=== PATIENT | male | born 1980 | race Caucasian/White ===

== ENCOUNTER 2019-07-25 08:56 | Emergency (ER) | payer OTHER, SELFPAY ==
[2019-07-25] VITALS (12 sets, daily range): BP systolic 105–141; BP diastolic 72–97; PULSE 107–122; RESP 18–26; TEMP 36.5–36.8; O2SAT 88–97; BMI 36.9
--- NOTE | 2019-07-25 09:05 | DI.RAD.S_ITS ---
PROCEDURE: XR CHEST 1V INDICATIONS: Short of breath and chest pain TECHNIQUE: One view of the chest was acquired. COMPARISON: None. FINDINGS: Surgical changes and devices: None. Lungs and pleura: An incomplete inspiratory result is noted, causing a crowded appearance to the lung markings. No focal infiltrates are seen. No pneumothorax or significant pleural effusions are seen. Mediastinum: Mediastinal contours appear normal. Heart size is normal. Bones and chest wall: No suspicious bony lesions. Overlying soft tissues appear unremarkable. IMPRESSION: Limited portable chest examination, without a significant cardiopulmonary abnormality identified. Dictated by: Braden Nunn M.D. on 07/25/2019 at 8:34 Approved by: Braden Nunn M.D. on 07/25/2019 at 8:35
--- NOTE | 2019-07-25 09:10 | ED_ITS ---
HPI - Chest Pain General Chief Complaint: Chest Pain Stated Complaint: a jack in the chest shortness of breath all night Time Seen by Provider: 07/25/19 09:03 Source: patient Mode of arrival: Ambulatory Limitations: no limitations History of Present Illness HPI narrative: Patient is a 39-year-old male with no known medical history is presenting with chest discomfort and shortness of breath which started suddenly early this morning. He says he woke up to use the restroom he felt sudden onset knot in his chest and difficulty breathing. The shortness of breath and chest pain are worse with exertion. He still has it now is but is better. He was found to be tachycardic with a oxygen saturation 88%. He denies any recent travel no productive cough no fevers chills or hemoptysis. He has no known coronary artery disease MD complaint: chest pain Onset (ago): hour(s) Duration: constant Pain location: substernal Severity: moderate Quality: tightness Pain radiation: none Relieving factors: nothing Exacerbating factors: exertion Related Data Home Medications Medication Instructions Recorded Confirmed No Known Home Medications 07/25/19 07/25/19 Allergies Allergy/AdvReac Type Severity Reaction Status Date / Time No Known Drug Allergies Allergy Verified 07/25/19 09:06 Review of Systems Review of Systems ROS Unobtainable: All systems reviewed & are unremarkable except as noted in HPI and below Cardiovascular Cardiovascular: Reports as per HPI, Reports chest pain and Reports dyspnea on exertion Respiratory Respiratory: Denies cough, Denies hemoptysis, Reports dyspnea on exertion and Denies wheezing Gastrointestinal Gastrointestinal: Denies abdominal pain, Denies change in bowel habits, Denies diarrhea, Denies nausea and Denies vomiting Musculoskeletal Musculoskeletal: Denies back pain, Denies muscle weakness, Denies numbness and Denies tingling Integumentary/Breasts Skin/Breast: Denies pruritus, Denies erythema, Denies rash and Denies wounds Neurologic Neurologic: Denies numbness and Denies tingling Allergic/Immunologic Allergic/Immunologic: Denies wheezing Patient History Medical History (Updated 07/25/19 @ 12:04 by Gladis Solomon RN) Inguinal hernia (Acute) Patient denies medical problems (Acute) Social History Smoking Status: Former smoker Smoking Status: Former smoker alcohol intake frequency: 0-2 drinks per day Substance Use Type: does not use Exam Initial Vital Signs Initial Vital Signs: Vital Signs Temperature 97.7 F 07/25/19 09:06 Pulse Rate 107 H 07/25/19 09:06 Respiratory Rate 22 07/25/19 09:06 Blood Pressure 115/72 07/25/19 09:06 Pulse Oximetry 88 L 07/25/19 09:06 GENERAL: Well-appearing, well-nourished and in no acute distress. HEENT: Head atraumatic,EOMI, pupils reactive, face symmetric, no JVD CARDIOVASCULAR: Regular rate and rhythm without murmurs, rubs or gallops. RESPIRATORY: Breath sounds equal bilaterally, no wheezes rales or rhonchi. ABDOMEN: Soft, nontender. Normoactive bowel sounds all 4 quadrants. No guarding or rebound. EXTREMITIES: Normal range of motion, no clubbing or edema. Neurovascularly intact NEUROLOGICAL: Alert and oriented x4.Normal gait and speech. Cranial nerves II through XII grossly intact. SKIN: Warm, dry, no laceration, no petechiae, no rashes or lesions. Course Orders Ordered: ED Orders 07/25/19 09:05 Consult to Respiratory Therapy Evaluate & Treat XR chest 1V Stat EKG-12 Lead Stat 07/25/19 09:16 B Type Natriuretic Peptide Stat Complete Blood Count AUTO DIFF Stat Comprehensive Metabolic Panel Stat Magnesium Stat Partial Thromboplastin Time Stat Procalcitonin Stat Prothrombin Time INR Stat Troponin & CK Cardiac Panel Stat 07/25/19 09:26 CT angio chest PE protocol Stat 07/25/19 09:48 Lactate (Lactic Acid) Stat 07/25/19 10:08 Blood Culture Stat 07/25/19 10:15 PTT [Partial Thromboplastin Time] Q6H 07/25/19 16:15 PTT [Partial Thromboplastin Time] Q6H 07/25/19 22:15 PTT [Partial Thromboplastin Time] Q6H 07/26/19 04:15 PTT [Partial Thromboplastin Time] Q6H 07/26/19 05:00 Hemoglobin and Hematocrit DAILY Heparin Sodium/Dextrose (Heparin Drip) 25,000 unit in 500 mls @ 24 mls/hr IV CONT LAURIE; Protocol Last Titration: 07/25/19 13:23 Dose: 0 units/hr, 0 mls/hr Documented by: Admin: 07/25/19 10:11 Dose: 1,200 units/hr, 24 mls/hr Documented by: [place] Discontinued Medications Albuterol/Ipratropium (Duoneb) 3 ml INH NOW ONE Stop: 07/25/19 09:06 Last Admin: 07/25/19 09:24 Dose: 3 ml Documented by: [place] Heparin Sodium (Porcine) (Heparin) 7,500 unit IV NOW ONE Stop: 07/25/19 10:04 Last Admin: 07/25/19 10:10 Dose: 7,500 unit Documented by: [place] Methylprednisolone (Solu-Medrol 125 Mg Vial) 125 mg IV NOW ONE Stop: 07/25/19 09:06 Last Admin: 07/25/19 09:24 Dose: 125 mg Documented by: [place] Consultations Consultation #1: Dr. Zambrano, hospitalist recommends patient be transferred to higher level of care with extensive clot burden and elevated troponin. Also worried about renal function. Time: 11:10 Consultation #2: Dr. Joseph, hospitalist at [facility], updated patient's symptoms test results need for transfer happily accepts patient Time: 11:31 Vital Signs Vital signs: Vital Signs - 8 hr 07/25/19 09:06 07/25/19 09:31 07/25/19 09:36 Temperature 97.7 F Pulse Rate 107 H 118 H 115 H Respiratory Rate 22 20 21 Blood Pressure 115/72 Blood Pressure [Right Arm] 121/77 Pulse Oximetry 88 L 97 96 07/25/19 10:02 07/25/19 10:22 07/25/19 10:40 Temperature Pulse Rate 114 H 119 H 121 H Respiratory Rate 22 24 18 Blood Pressure Blood Pressure [Right Arm] 124/88 141/87 H Pulse Oximetry 94 93 97 07/25/19 10:51 07/25/19 11:15 07/25/19 12:00 Temperature 98.3 F Pulse Rate 122 H 115 H 112 H Respiratory Rate 20 24 26 H Blood Pressure Blood Pressure [Right Arm] 133/89 134/92 H Pulse Oximetry 96 96 96 07/25/19 12:19 Temperature Pulse Rate 110 H Respiratory Rate 18 Blood Pressure Blood Pressure [Right Arm] 105/77 Pulse Oximetry 96 MDM - Chest Pain Lab Data Attestation: I reviewed the patient's lab results. Result diagrams: 07/25/19 09:16 07/25/19 09:16 Labs: Lab Results 07/25/19 07/25/19 07/25/19 Range/Units 09:16 09:16 09:16 WBC 12.7 H (4.5-11.0) X10^3/uL RBC 5.82 (4.5-5.9) X10^6/uL Hgb 16.1 (13.5-17.5) g/dL Hct 48.1 (41-53) % MCV 82.7 (80-100) fL MCH 27.6 (26-34) PG MCHC 33.4 (30-36) % RDW 14.8 (11.6-14.8) % Plt Count 145 L (150-400) X10^3/uL Neut % (Auto) 71.7 (50-75) % Lymph % (Auto) 14.7 L (25-40) % [place] % (Auto) 13.1 (3-14) % Eos % (Auto) 0.3 L (2-4) % Baso % (Auto) 0.2 (0-2) % Neut # (Auto) 9100 H (6270-9122) /uL Lymph # (Auto) 1900 (7189-0716) /uL [place] # (Auto) 1700 H (0-900) /uL Eos # (Auto) 0 (0-450) /uL Baso # (Auto) 0 (0-100) /uL PT 13.7 H (10.1-12.7) SECONDS INR 1.2 (0.9-1.3) APTT 33 (26.4-36.2) SECONDS Sodium 138 (137-145) mmol/L Potassium 5.0 (3.4-5.1) mmol/L Chloride 99 (98-107) mmol/L Carbon Dioxide 29 (22-32) mmol/L BUN 25 H (9-20) mg/dL Creatinine 1.90 H (0.66-1.25) mg/dL Estimated GFR 39.5 L (>60) mL/min BUN/Creatinine Ratio 13.2 (6-22) Glucose 117 H (70-100) mg/dL Lactate (0.7-2.1) mmol/L Calcium 9.4 (8.4-10.2) mg/dL Magnesium 2.4 H (1.6-2.3) mg/dL Total Bilirubin 1.3 (0.2-1.3) mg/dL AST 46 (17-59) IU/L ALT 53 H (<50) IU/L Alkaline Phosphatase 96 (38-126) U/L Total Creatine Kinase 62 (55-170) U/L CK-MB (CK-2) TNP CK-MB (CK-2) Rel Index TNP Troponin I 0.714 H* (0.01-0.034) ng/mL B-Natriuretic Peptide < 100 (<100) Total Protein 9.2 H (6.3-8.2) g/dL Albumin 4.8 (3.5-5.0) g/dL Globulin 4.4 H (1.7-4.1) g/dL Albumin/Globulin Ratio 1.1 (1.0-2.8) Procalcitonin (<0.5) ng/mL 07/25/19 07/25/19 Range/Units 09:16 09:48 WBC (4.5-11.0) X10^3/uL RBC (4.5-5.9) X10^6/uL Hgb (13.5-17.5) g/dL Hct (41-53) % MCV (80-100) fL MCH (26-34) PG MCHC (30-36) % RDW (11.6-14.8) % Plt Count (150-400) X10^3/uL Neut % (Auto) (50-75) % Lymph % (Auto) (25-40) % [place] % (Auto) (3-14) % Eos % (Auto) (2-4) % Baso % (Auto) (0-2) % Neut # (Auto) (8297-7226) /uL Lymph # (Auto) (0958-2693) /uL [place] # (Auto) (0-900) /uL Eos # (Auto) (0-450) /uL Baso # (Auto) (0-100) /uL PT (10.1-12.7) SECONDS INR (0.9-1.3) APTT (26.4-36.2) SECONDS Sodium (137-145) mmol/L Potassium (3.4-5.1) mmol/L Chloride (98-107) mmol/L Carbon Dioxide (22-32) mmol/L BUN (9-20) mg/dL Creatinine (0.66-1.25) mg/dL Estimated GFR (>60) mL/min BUN/Creatinine Ratio (6-22) Glucose (70-100) mg/dL Lactate 1.4 (0.7-2.1) mmol/L Calcium (8.4-10.2) mg/dL Magnesium (1.6-2.3) mg/dL Total Bilirubin (0.2-1.3) mg/dL AST (17-59) IU/L ALT (<50) IU/L Alkaline Phosphatase (38-126) U/L Total Creatine Kinase (55-170) U/L CK-MB (CK-2) CK-MB (CK-2) Rel Index Troponin I (0.01-0.034) ng/mL B-Natriuretic Peptide (<100) Total Protein (6.3-8.2) g/dL Albumin (3.5-5.0) g/dL Globulin (1.7-4.1) g/dL Albumin/Globulin Ratio (1.0-2.8) Procalcitonin 0.13 (<0.5) ng/mL ABG Data Attestation: I personally reviewed and interpreted this ABG as follows: Imaging Data CT scan - chest: Radiologist's Impression: PROCEDURE: CT ANGIO CHEST PE PROTOCOL INDICATIONS: hypoxia TECHNIQUE: After the administration of intravenous contrast, 2 mm thick sections acquired from the pulmonary apices to the posterior costophrenic angles. 3-dimensional maximum intensity projection (MIP) coronal and sagittal reformats were then acquired through the thorax. For radiation dose reduction, the following was used: automated exposure control, adjustment of mA and/or kV according to patient size. COMPARISON: [facility], CR, XR CHEST 1V, 07/25/2019, 9:23. FINDINGS: Image quality: Excellent. Pulmonary arteries: Extensive bilateral pulmonary embolism is seen. On the left, there is thrombus seen involving the main bifurcation. Numerous thrombi are seen within the left upper and lower pulmonary arteries as well as the left segmental arteries. On the right, the main right upper lobe pulmonary artery is involved as well as the main right middle lobe pulmonary artery. Proximal segmental branches of the right lower lobe are involved, as well as numerous segmental branches elsewhere on the right. The pulmonary arteries themselves do not appear enlarged. Lungs and pleura: Lungs are clear. No pleural effusions or pneumothorax. Central and peripheral airways are patent. Mediastinum: Heart size is normal, without pericardial effusion. No mediastinal or hilar adenopathy. Thoracic aorta is normal in caliber and enhancement. Esophagus is normal in caliber, without hiatal hernia. Bones and chest wall: No suspicious bony lesions. Ribs and thoracic spine appear intact throughout. Thyroid gland demonstrates no significant CT abnormality. No axillary or supraclavicular adenopathy. Abdomen: There is partial visualization of left-sided hydronephrosis. There is a mild degree of left-sided and stranding. The visualized portions of the upper abdominal structures are otherwise unremarkable for imaging technique. IMPRESSION: Large burden of extensive bilateral pulmonary embolism. No susan findings of right heart strain can be seen. Left-sided hydronephrosis is seen, with left-sided perinephric fat stranding. Concern is raised for left-sided obstructive uropathy. Note: Case discussed by telephone with Dr. Zelaya at 10:20 AM [place] time on July 25, 2019. Dictated by: Braden Nunn M.D. on 07/25/2019 at 9:16 Chest x-ray: Radiologist's Impression: PROCEDURE: XR CHEST 1V INDICATIONS: Short of breath and chest pain TECHNIQUE: One view of the chest was acquired. COMPARISON: None. FINDINGS: Surgical changes and devices: None. Lungs and pleura: An incomplete inspiratory result is noted, causing a crowded appearance to the lung markings. No focal infiltrates are seen. No pneumothorax or significant pleural effusions are seen. Mediastinum: Mediastinal contours appear normal. Heart size is normal. Bones and chest wall: No suspicious bony lesions. Overlying soft tissues appear unremarkable. IMPRESSION: Limited portable chest examination, without a significant cardiopulmonary abnormality identified. Dictated by: Braden Nunn M.D. on 07/25/2019 at 8:34 ECG Data Attestation: I personally reviewed and interpreted this ECG as follows: Prior ECG tracings: not available for review Interpretation: Sinus rhythm tachycardic rate 116 p.r. interval 132 QRS 93 QTC 380 S wave is noted in lead 1, Q-wave and T-wave inversion in lead [address] elevation depression or T-wave inversion MDM Narrative Medical decision making narrative: Patient noted to be quite hypoxic upon arrival. It started suddenly chest x-ray is negative for pneumothorax. Patient has no risk factors for pulmonary embolism however he is tachycardic and hypoxic. CT does reveal extensive bilateral clot burden. He is immediately started on heparin. His blood pressure remained stable and oxygen remains within normal limits on his 1-2 L. Troponin is elevated likely secondary to his cardiac stress. Obvious right heart strain is noted on the CT per Radiology. Patient's creatinine is elevated at 1.9 with left hydronephrosis also noted on CT scan. Patient had out patient blood work done at the [facility] at beginning of June. Creatinine at that time was 1.1 with BUN of 23 and that was 07/02/2019. Due to extensive clot burden and elevation of troponin recommended patient be transferred to higher level of care. Patient has been graciously accepted at [facility] in [place] Critical Care Time Critical Care Time Critical Care Time: Yes Total Critical Care Time: 45 Attestation: The high probability of a clinically significant, sudden or life threatening deterioration of the [cardiovascular] system(s) required my full and direct attention, intervention and personal management. The aggregate critical care time was [45] minutes. This time is in addition to time spent performing reported procedures but includes the following: [x] Data Review and interpretation [x] Patient assessment and monitoring of vital signs [x] Documentation [x] Medication orders and management Discharge Plan Departure Patient Disposition: [facility] Clinical Impression: Pulmonary emboli Qualifiers: Pulmonary embolism type: multiple subsegmental (without acute cor pulmonale) Qualified Code(s): I26.94 - Multiple subsegmental pulmonary emboli without acute cor pulmonale Prescriptions: No Action No Known Home Medications RF: 0
[2019-07-25 09:24] LABS: Add Manual Diff / Slide Review NO; Basophils Absolute Auto 0 /uL (0-100); Basophils Percent Auto 0.2 % (0-2); Eosinophils Absolute Auto 0 /uL (0-450); Eosinophils Percent Auto 0.3 % (2-4); Hematocrit 48.1 % (41-53); Hemoglobin 16.1 g/dL (13.5-17.5); Lymphocytes Absolute Auto 1900 /uL (1100-4500); Lymphocytes Percent Auto 14.7 % (25-40); Mean Corpuscular HGB Conc 33.4 % (30-36); Mean Corpuscular Hemoglobin 27.6 PG (26-34); Mean Corpuscular Volume 82.7 fL (80-100); Monocytes Absolute Auto 1700 /uL (0-900); Monocytes Percent Auto 13.1 % (3-14); Neutrophils Absolute Auto 9100 /uL (1500-7000); Neutrophils Percent Auto 71.7 % (50-75); Platelet Count 145 X10^3/uL (150-400); Red Blood Cell Count 5.82 X10^6/uL (4.5-5.9); Red Cell Distribution Width 14.8 % (11.6-14.8); White Blood Cell Count 12.7 X10^3/uL (4.5-11.0)
[2019-07-25] MEDS: methylPREDNISolone 125 MG/2 ML VIAL IV (09:24)
[2019-07-25] MEDS: ALBUTEROL/IPRATROPIUM 3 ML AMPUL INH (09:24)
--- NOTE | 2019-07-25 09:26 | DI.CT.S_ITS ---
PROCEDURE: CT ANGIO CHEST PE PROTOCOL INDICATIONS: hypoxia TECHNIQUE: After the administration of intravenous contrast, 2 mm thick sections acquired from the pulmonary apices to the posterior costophrenic angles. 3-dimensional maximum intensity projection (MIP) coronal and sagittal reformats were then acquired through the thorax. For radiation dose reduction, the following was used: automated exposure control, adjustment of mA and/or kV according to patient size. COMPARISON: [facility], , XR CHEST 1V, 07/25/2019, 9:23. FINDINGS: Image quality: Excellent. Pulmonary arteries: Extensive bilateral pulmonary embolism is seen. On the left, there is thrombus seen involving the main bifurcation. Numerous thrombi are seen within the left upper and lower pulmonary arteries as well as the left segmental arteries. On the right, the main right upper lobe pulmonary artery is involved as well as the main right middle lobe pulmonary artery. Proximal segmental branches of the right lower lobe are involved, as well as numerous segmental branches elsewhere on the right. The pulmonary arteries themselves do not appear enlarged. Lungs and pleura: Lungs are clear. No pleural effusions or pneumothorax. Central and peripheral airways are patent. Mediastinum: Heart size is normal, without pericardial effusion. No mediastinal or hilar adenopathy. Thoracic aorta is normal in caliber and enhancement. Esophagus is normal in caliber, without hiatal hernia. Bones and chest wall: No suspicious bony lesions. Ribs and thoracic spine appear intact throughout. Thyroid gland demonstrates no significant CT abnormality. No axillary or supraclavicular adenopathy. Abdomen: There is partial visualization of left-sided hydronephrosis. There is a mild degree of left-sided and stranding. The visualized portions of the upper abdominal structures are otherwise unremarkable for imaging technique. IMPRESSION: Large burden of extensive bilateral pulmonary embolism. No susan findings of right heart strain can be seen. Left-sided hydronephrosis is seen, with left-sided perinephric fat stranding. Concern is raised for left-sided obstructive uropathy. Note: Case discussed by telephone with Dr. Zelaya at 10:20 AM [place] time on July 25, 2019. Dictated by: Braden Nunn M.D. on 07/25/2019 at 9:16 Approved by: Braden Nunn M.D. on 07/25/2019 at 9:22
[2019-07-25 09:32] LABS: INR 1.2 (0.9-1.3); Prothrombin Time 13.7 SECONDS (10.1-12.7)
[2019-07-25 09:35] LABS: PTT Partial Thromboplastin Tim 33 SECONDS (26.4-36.2)
[2019-07-25 09:37] LABS: Alanine Aminotransferase 53 IU/L (<50); Albumin 4.8 g/dL (3.5-5.0); Albumin Globulin Ratio 1.1 (1.0-2.8); Alkaline Phosphatase 96 U/L (38-126); Aspartate Aminotransferase 46 IU/L (17-59); BUN Creatinine Ratio 13.2 (6-22); Bilirubin Total 1.3 mg/dL (0.2-1.3); Blood Urea Nitrogen 25 mg/dL (9-20); Calcium 9.4 mg/dL (8.4-10.2); Carbon Dioxide 29 mmol/L (22-32); Chloride 99 mmol/L (98-107); Creatine Kinase 62 U/L (55-170); Estimated Glomerular Filt Rate 39.5 mL/min (>60); Globulin 4.4 g/dL (1.7-4.1); Glucose 117 mg/dL (70-100); HEMOLYSIS < 15 (0-50); Magnesium 2.4 mg/dL (1.6-2.3); Sodium 138 mmol/L (137-145); Total Protein 9.2 g/dL (6.3-8.2)
[2019-07-25 09:48] LABS: B Type Natriuretic Peptide < 100 (<100)
[2019-07-25 09:54] LABS: Troponin I 0.714 ng/mL (0.01-0.034)
[2019-07-25 09:59] LABS: Procalcitonin 0.13 ng/mL (<0.5)
[2019-07-25 10:10] LABS: Lactate (Lactic Acid) 1.4 mmol/L (0.7-2.1)
[2019-07-25] MEDS: HEPARIN 5,000 UNIT/ML VIAL 7500 UNIT IV (10:10)
[2019-07-25] MEDS: HEPARIN DRIP 25,000 UNIT/500 ML IV.SOLN 24 UNIT IV (10:11)
--- NOTE | 2019-08-24 13:02 | ONC.MSW ---
Description: Initial Referral Navigation T/C Activity: Left message for pt that we've received his referral, introduced myself as the navigator and provided my direct line for him to call, should he have any questions or immediate need of assistance. Shared that the schedulers will be f/u to schedule him for the next urgent appt. time.
== END 2019-07-25 13:30 | disposition short-term general hospital (02) ==
PROVIDERS: Emergency Provider Emergency Medicine
DX: I26.94 Multiple subsegmental thrombotic pulmonary emboli without acute cor pulmonale (principal); R00.0 Tachycardia, unspecified
CPT/HCPCS: 36415; 71045; 71275; 80053; 82550; 83605; 83735; 83880; 84145; 84484; 85025; 85610; 85730; 87040; 93005; 94640; 96365; 96366; 96375; 96376; 99285; 99291; 99292; J1644; J2930; Q9967

== ENCOUNTER → 2019-09-13 07:48 | Outpatient (CLI) | payer OTHER, SELFPAY ==
[2019-09-13 08:01] LABS: Add Manual Diff / Slide Review NO; Basophils Absolute Auto 0 /uL (0-100); Basophils Percent Auto 0.6 % (0-2); Eosinophils Absolute Auto 100 /uL (0-450); Eosinophils Percent Auto 1.1 % (2-4); Hematocrit 37.6 % (41-53); Hemoglobin 12.5 g/dL (13.5-17.5); Lymphocytes Absolute Auto 1600 /uL (1100-4500); Lymphocytes Percent Auto 22.9 % (25-40); Mean Corpuscular HGB Conc 33.4 % (30-36); Mean Corpuscular Hemoglobin 27.2 PG (26-34); Mean Corpuscular Volume 81.6 fL (80-100); Monocytes Absolute Auto 900 /uL (0-900); Monocytes Percent Auto 12.7 % (3-14); Neutrophils Absolute Auto 4400 /uL (1500-7000); Neutrophils Percent Auto 62.7 % (50-75); Platelet Count 221 X10^3/uL (150-400); Red Cell Distribution Width 15.4 % (11.6-14.8)
[2019-09-13 08:16] LABS: Alanine Aminotransferase 30 IU/L (<50); Albumin 4.7 g/dL (3.5-5.0); Alkaline Phosphatase 96 U/L (38-126); Aspartate Aminotransferase 39 IU/L (17-59); BUN Creatinine Ratio 15.7 (6-22); Bilirubin Total 0.7 mg/dL (0.2-1.3); Blood Urea Nitrogen 33 mg/dL (9-20); Calcium 10.1 mg/dL (8.4-10.2); Carbon Dioxide 25 mmol/L (22-32); Chloride 104 mmol/L (98-107); Estimated Glomerular Filt Rate 35.2 mL/min (>60); Globulin 4.5 g/dL (1.7-4.1); Glucose 99 mg/dL (70-100); HEMOLYSIS < 15 (0-50); Potassium 4.5 mmol/L (3.4-5.1); Sodium 139 mmol/L (137-145); Total Protein 9.2 g/dL (6.3-8.2)
== END ==
PROVIDERS: Referring Provider Internal Medicine Hematology & Oncology; Visit Provider Internal Medicine Hematology & Oncology
DX: C62.91 Malignant neoplasm of right testis, unspecified whether descended or undescended (principal)
CPT/HCPCS: 36415; 80053; 85025

== ENCOUNTER 2019-09-14 09:49 | Day surgery (SDC) | payer OTHER, SELFPAY ==
[2019-09-14] VITALS (7 sets, daily range): BP systolic 145–163; BP diastolic 92–106; PULSE 70–100; RESP 14–21; TEMP 36.6–36.7; O2SAT 96–98; BMI 33.3
--- NOTE | 2019-09-14 | DI.RAD.S_ITS ---
PROCEDURE: XR CHEST 1V INDICATIONS: PORT A CATH PLACEMENT TECHNIQUE: One view of the chest was acquired. COMPARISON: [facility], CR, XR CHEST 1V, 07/25/2019, 9:23. FINDINGS: Surgical changes and devices: A Port-A-Cath has been placed with possible kinking of the exiting catheter just beyond its insertion into the side port, and the catheter takes a cephalad course, into the lower neck. It then curves inferiorly but does not extend clearly into the superior vena cava. Rather, its tip likely is within the jugular vein.. Lungs and pleura: Lungs are clear. No pleural effusions or pneumothorax. Mediastinum: Mediastinal contours appear normal. Heart size is normal. Bones and chest wall: No suspicious bony lesions. Overlying soft tissues appear unremarkable. IMPRESSION: Possible kinking of the Port-A-Cath catheter just beyond its exit from the Port-A-Cath reservoir. Tip of the Port-A-Cath catheter is likely adnexal level at or just above the level of the confluence of the subclavian vein and the jugular vein. Dictated by: Glen Rose M.D. on 09/14/2019 at 15:50 Approved by: Glen Rose M.D. on 09/14/2019 at 15:53
[2019-09-14] MEDS: SODIUM CHLORIDE 0.9% 1,000 ML 84 ML IV ×2 (11:15→14:26)
[2019-09-14] MEDS: METOCLOPRAMIDE 10 MG/2 ML INJ IV (11:44)
[2019-09-14] MEDS: FAMOTIDINE 20 MG/50 ML PIGGYBACK 200 MG IV (11:46)
--- NOTE | 2019-09-14 11:52 | PM.HP.1 ---
History of Present Illness History of Present Illness Date Patient Seen: 09/14/19 Time Patient Seen: 11:52 Chief complaint: [id number] Narrative: Kirk is a 39-year-old male with a right testicular cancer referred for Port-A-Cath placement. He has undergone a right orchiectomyand has stage III seminoma. He is scheduled to begin chemotherapy with Etoposide and Cisplatin within the next 1 week. His medical history is significant for bilateral pulmonary embolism and acute renal dysfunction. He is feeling well today without pain fever or nausea. No history of prior intra vascular devices. Patient History Medical History Hydronephrosis, left (Acute) Hypoxia (Acute 07/25/19) Inguinal hernia (Acute) Lipoma (Acute) Multiple pulmonary emboli (Acute 07/25/19) Patient denies medical problems (Acute) Retroperitoneal lymphadenopathy (Acute) Right testicular cancer (Acute 07/2019) Weight loss, non-intentional (Acute ~07/2019) Surgical History H/O vasectomy (Acute 07/29/19) History of removal of skin mole (Acute) History of ureter stent (Acute 07/29/19) History of ureter stent (Acute 08/24/19) Hx of cystoscopy (Acute 07/29/19) S/P radical unilateral orchiectomy (Acute 07/29/19) Family & Social History Family History Mother Rheumatoid arthritis Father Diabetes mellitus Father Hypertension Social History: household members spouse Tobacco & Substance use: Smoking Status Former smoker alcohol intake current alcohol intake frequency holiday/special occasion Substance Use Type does not use Meds Home Medications and Allergies Home Medications Medication Instructions Recorded Confirmed Type acetaminophen [Tylenol] 650 mg PO Q4H PRN 09/02/19 09/14/19 History apixaban [Eliquis] 5 mg PO BID 09/02/19 09/14/19 History cyclobenzaprine 5 mg PO TID PRN 09/02/19 09/14/19 History oxycodone 5 mg PO Q6H PRN 09/02/19 09/14/19 History polyethylene glycol 3350 [Miralax] 17 g PO DAILY 09/02/19 09/14/19 History sennosides [senna] 8.6 mg PO BID 09/02/19 09/14/19 History Allergies Allergy/AdvReac Type Severity Reaction Status Date / Time No Known Drug Allergies Allergy Verified 09/14/19 10:36 Review of Systems Review of Systems Narrative: A 10 point review of systems is negative except as noted in the HPI Exam Vital Signs (past 8 hours): - 09/14/19 10:25 Temperature 97.9 F Pulse Rate 74 Respiratory Rate 16 Blood Pressure 145/94 H Pulse Oximetry 98 Oxygen Delivery Method Room Air Narrative Exam Narrative: General-no acute distress, well nourished HEENT-moist mucous membranes, no scleral icterus Neck-supple, no lymphadenopathy Chest- non labored respirations, clear to auscultation bilaterally Cardiac-regular rate no peripheral edema Abdomen-soft, nontender, non distended Extremities-warm, well perfused Neurological-alert and oriented, no focal deficits Assessment & Plan Assessment and plan (1) Seminoma of right testis, stage 3: Problem details: Kirk is a 39-year-old male with right stage III seminoma who requires a port a cath for chemotherapy. We discussed the technical aspects of the operation the expected post operative course and potential complications including bleeding infection pneumothorax. His questions have been answered and he is in agreement with this plan. Current visit: Yes Status: Acute
[2019-09-14] MEDS: CEFAZOLIN 2 GM/100 ML FROZ.PIGGY IV (13:47)
[2019-09-14] MEDS: BUPIVACAINE 0.25% (PF) VIAL 30 ML INJ (14:09)
[2019-09-14] MEDS: HEPARIN 5,000 UNIT, SODIUM CHLORIDE 0.9% 50 ML IV (14:09)
--- NOTE | 2019-09-14 14:18 | SUR.OPER ---
Supine on padded OR bed, head on pillow, bilateral arms padded and tucked at side, legs uncrossed, safety belt at thigh, tape over blanket over lower legs .
--- NOTE | 2019-09-14 15:01 | PM.OP.1 ---
Operative Date/Time/Diagnoses Date of procedure: 09/14/19 Time of procedure: 15:01 Pre-op diagnosis: Testicular cancer Post-op diagnosis: same Procedure & Clinicians Procedure: Right Port-A-Cath Same procedure as scheduled: Yes Indications: Testicular cancer Surgeon: Elie Espino Click Yes if Unassisted: Yes Anesthesia Type: General Operative Notes Findings: Tip of the catheter projects within the SVC Estimated Blood Loss (mL): 30 Procedure in detail: Patient was brought to the operating room placed supine on table. Bilateral lower extremity compressive devices were applied. General anesthesia was induced and he was intubated with an LMA. He was then prepped and draped in usual sterile fashion. Time-out was performed ensure the correct patient procedure necessary equipment within the operating room. He received 2 g of Ancef prior to incision. Under ultrasound guidance the right internal jugular vein was accessed under direct visualization. The guidewire was then threaded through the needle. Its placement was then confirmed using fluoroscopy. The dilator was then placed over the guidewire. The catheter was then inserted through the sheath. Placement was again confirmed with fluoroscopy. A subcutaneous pocket was made in the right chest wall. The tunneler device was used to move the catheter from the neck to the chest pocket. The port was attached after it was primed with heparined saline. The port was tested to ensure that it flushed easily and had good blood return. The port was then secured to the underlying fascia using interupted 0 Prolene suture. Hemostasis was achieved. The wound was irrigated with sterile saline. Topical hemostatic agent FloSeal was placed into the chest pocket. Hemostasis was confirmed. The subcutaneous tissues were reapproximated with the 3 0 Vicryl and then skin closed with 4-0 Monocryl. The skin was sealed with Dermabond. Patient tolerated procedure well. The sponge and instrument count at the end operation was correct. Patient emerged from general anesthesia was extubated and taken to the postoperative care unit in stable condition Complications: none Post-operative Condition: stable Disposition: same day surgery
[2019-09-14] MEDS: ONDANSETRON 4 MG/2 ML INJ IV (15:18)
[2019-09-14] MEDS: fentaNYL 100 MCG/2 ML INJ IV (15:18)
== END 2019-09-14 16:17 | disposition home or self-care (01) ==
PROVIDERS: Referring Provider Surgery; Visit Provider Surgery
PROC: (CPT 36561; principal; 2019-09-14 11:15)
DX: C62.91 Malignant neoplasm of right testis, unspecified whether descended or undescended (principal); Z45.2 Encounter for adjustment and management of vascular access device; M54.9 Dorsalgia, unspecified
CPT/HCPCS: 36561; 71045; 72192; 76000; 99283; C1788; J0690; J1100; J1170; J1644; J2405; J2704; J2765; J3010

== ENCOUNTER 2019-09-14 20:37 | Emergency (ER) | payer OTHER, SELFPAY ==
[2019-09-14 20:43] VITALS: BP 147/92; PULSE 87; RESP 15; TEMP 36.7; O2SAT 99; BMI 33.3
--- NOTE | 2019-09-14 22:05 | DI.CT.S_ITS ---
PROCEDURE: CT PEL WO CON INDICATIONS: hs testicular CA with L hip pain TECHNIQUE: Noncontrast 3 mm axial sections acquired through the bony pelvis, with coronal and sagittal reformatting. COMPARISON: [facility], CT, CT ANGIO CHEST PE PROTOCOL, 07/25/2019, 9:46. FINDINGS: Image quality: Excellent. Bones: No fracture or dislocation. There is an expansile cortical lesion in the proximal right femur measuring 1.5 x 2.4 x 2.8 cm. Soft tissues: There is bilateral ureter stents. There is marked retroperitoneal lymphadenopathy with partial visualization of a large maximino mass extending to the aortic bifurcation, measuring approximately 7.6 x 9.9 cm. The bladder is mildly distended. There is a tiny fat-containing umbilical hernia and a small fat-containing left inguinal hernia. IMPRESSION: 1. No fracture or dislocation. 2. An expansile cortical lesion in the proximal right femur measuring 1.5 x 2.4 x 2.8 cm. differential diagnoses include fibrous cortical defect/nonossifying fibroma and neoplasm. Recommend MRI with and without contrast for further evaluation. In this patient with testicular cancer, a whole body bone scan may be helpful. 3. Marked retroperitoneal lymphadenopathy consistent with metastasis. Retroperitoneal adenopathy is partially visualized. Recommend CT abdomen for further evaluation. 4. Bilateral ureter stents. Dictated by: Juni Vences M.D. on 09/15/2019 at 7:36 Approved by: Juni Vences M.D. on 09/15/2019 at 7:48
--- NOTE | 2019-09-14 22:05 | ED.BACK ---
HPI - Back Pain/Injury General Chief Complaint: Back Pain/Injury Stated Complaint: sharp pain above left hip Time Seen by Provider: 09/14/19 21:58 Source: patient Mode of arrival: Ambulatory Limitations: no limitations History of Present Illness HPI Narrative: Patient is a 39-year-old male. Has testicular cancer. His known intra-abdominal lymph nodes. Had a port placed today in preparation of chemotherapy however he has not started chemotherapy. His here for evaluation of left-sided hip pain. He stated that it started earlier today. He stated that he did spend quite a bit of time sitting and lying down due to his procedure earlier today. She does have Flexeril at home but ran out of it yesterday and has not taken it today. He also has pain medication at home. He took the pain medication without much improvement of his symptoms. No bowel or bladder symptoms. Related Data Home Medications Medication Instructions Recorded Confirmed Eliquis 5 mg PO BID 09/02/19 09/14/19 acetaminophen [Tylenol] 650 mg PO Q4H PRN 09/02/19 09/14/19 cyclobenzaprine 5 mg PO TID PRN 09/02/19 09/14/19 oxycodone 5 mg PO Q6H PRN 09/02/19 09/14/19 polyethylene glycol 3350 [Miralax] 17 g PO DAILY 09/02/19 09/14/19 sennosides [senna] 8.6 mg PO BID 09/02/19 09/14/19 Allergies Allergy/AdvReac Type Severity Reaction Status Date / Time No Known Drug Allergies Allergy Verified 09/14/19 20:43 Review of Systems Constitutional Constitutional: Denies fever(s) ENT Ears, Nose, Mouth, and Throat: Denies vertigo Cardiovascular Cardiovascular: Denies chest pain and Denies dyspnea Respiratory Respiratory: Denies dyspnea Genitourinary Genitourinary: Denies dysuria Musculoskeletal Comments: Left hip pain/lower back pain Integumentary/Breasts Skin/Breast: Denies lesions and Denies rash Neurologic Neurologic: Denies behavioral changes, Denies confusion and Denies vertigo Psychiatric Psychiatric: Denies behavioral changes and Denies confusion Hematologic/Lymphatic Comments: On anticoagulation Patient History Medical History Hydronephrosis, left (Acute) Hypoxia (Acute 07/25/19) Inguinal hernia (Acute) Lipoma (Acute) Multiple pulmonary emboli (Acute 07/25/19) Patient denies medical problems (Acute) Retroperitoneal lymphadenopathy (Acute) Right testicular cancer (Acute 07/2019) Weight loss, non-intentional (Acute ~07/2019) Social History household members: spouse Smoking Status: Former smoker alcohol intake: current substance use type: does not use Smoking Status: Former smoker alcohol intake frequency: holidays/special occasions only Substance Use Type: does not use Exam Initial Vital Signs Initial Vital Signs: Vital Signs Temperature 98.1 F 09/14/19 20:43 Pulse Rate 87 09/14/19 20:43 Respiratory Rate 15 09/14/19 20:43 Blood Pressure 147/92 H 09/14/19 20:43 Pulse Oximetry 99 09/14/19 20:43 Const General: cooperative and healthy appearing Resp Effort & Inspection: normal respiratory effort Auscultation: clear to auscultation bilaterally Cardio Rate: regular rate Back/Spine/Pelvis Thoracic/Lumbar Spine: paraspinal tenderness and No lumbar spinal tenderness Skin Lesions: no lesions Rashes: no rashes Neuro General: alert and awake Cognition: normal cognition Speech: speech normal Extrem General: normal to inspection Psych Appearance: grossly normal Course Orders Ordered: ED Orders 09/14/19 22:05 CT pelvis wo con Stat Discontinued Medications Cyclobenzaprine HCl (Flexeril 10 Mg Prepack) 1 bottle MISC SEEINSTR ONE Stop: 09/14/19 23:41 Last Admin: 09/14/19 23:49 Dose: 1 bottle Documented by: DESHAUN Hydromorphone HCl (Dilaudid) 1 mg IM NOW ONE Stop: 09/14/19 22:06 Last Admin: 09/14/19 22:24 Dose: 1 mg Documented by: DESHAUN Vital Signs Vital signs: Vital Signs - 8 hr 09/14/19 23:10 Temperature 98.2 F Pulse Rate 84 Respiratory Rate 20 Blood Pressure [Right Arm] 142/84 H Pulse Oximetry 95 MDM - Back Pain/Injury Imaging Data CT pelvis: Radiologist's Impression: No acute fracture dislocation left hip Indeterminate lesion in the proximal right femur Extensive retroperitoneal lymphadenopathy Additional findings as above MDM Narrative Medical decision making narrative: I do suspect the patient's symptoms are musculoskeletal. He did improve after pain medication. CT scan shows no acute pathology in the left hip. There is no signs of fracture. We did discuss the indeterminate finding of his proximal right femur. He is instructed he needed talk with his oncologist about these findings. I did provide the patient some Flexeril until he can get it refilled tomorrow. He has pain medication at home. He was given return precautions and follow-up instructions. He expressed understanding and agreement with plan. Discharge Plan Departure Patient Disposition: Home Clinical Impression: Lower back pain Qualifiers: Chronicity: acute Back pain laterality: left Sciatica presence: without sciatica Qualified Code(s): M54.5 - Low back pain Discharge Date/Time: 09/14/19 23:50 Instructions: DI for Low Back Pain Activity Restrictions/Additional Instructions: Take all of your medications as directed. Keep all of your scheduled medical appointments. Be sure to follow-up with your oncologist to discuss the CT scan that was done today. Return to the emergency department for any new or worsening symptoms Prescriptions: No Action sennosides [senna] 8.6 mg Tablet 8.6 mg PO BID RF: 0 acetaminophen [Tylenol] 325 mg Tablet 650 mg PO Q4H PRN (Reason: Pain (Scale Score 4-6)) RF: 0 polyethylene glycol 3350 [Miralax] 17 gram/dose Powder 17 g PO DAILY RF: 0 oxycodone 5 mg Tablet 5 mg PO Q6H PRN (Reason: Pain (Scale Score 4-6)) RF: 0 cyclobenzaprine 5 mg Tablet 5 mg PO TID PRN (Reason: Pain (Scale Score 4-6)) RF: 0 Eliquis 5 mg Tablet 5 mg PO BID RF: 0 Referrals: Zain Murillo [Primary Care Provider] -
[2019-09-14] MEDS: HYDROMORPHONE 1 MG INJ IM (22:24)
[2019-09-14 23:10] VITALS: BP 142/84; PULSE 84; RESP 20; TEMP 36.8; O2SAT 95
[2019-09-14] MEDS: CYCLOBENZAPRINE 10 MG PREPACK 1 BOTTLE MISC (23:49)
== END 2019-09-14 23:50 | disposition home or self-care (01) ==
PROVIDERS: Emergency Provider Emergency Medicine
DX: M54.9 Dorsalgia, unspecified (principal)
CPT/HCPCS: 72192; J1170

== ENCOUNTER → 2019-09-17 12:28 | Outpatient (CLI) | payer OTHER, SELFPAY ==
--- NOTE | 2019-09-17 12:29 | DI.CT.S_ITS ---
PROCEDURE: CT CHEST ABD PEL WO CON INDICATIONS: testicular cancer TECHNIQUE: After the administration of oral contrast, 5 mm thick sections acquired from the lung apices to the symphysis pubis. 5 mm thick coronal and sagittal reformats acquired, with additional 7 mm coronal MIP reformats through the lungs. For radiation dose reduction, the following was used: automated exposure control, adjustment of mA and/or kV according to patient size. COMPARISON: None. FINDINGS: Image quality: Somewhat reduced due to the absence of intravenous contrast during image acquisition through the chest/abdomen/pelvis. Oral contrast was administered. CHEST: Lungs and pleura: No acute pulmonary opacities. No pleural effusions or pneumothorax. Central and peripheral airways are patent are normal in caliber. Mediastinum: Heart size is normal. No pericardial effusion. No mediastinal adenopathy by CT size criteria. Thoracic aorta and central pulmonary arteries are normal in size. Esophagus is normal in caliber. No hiatal hernia. Port-A-Cath from right sided approach extends to the medial border of the right subclavian vein, and does not enter the superior vena cava. Chest wall: No axillary or supraclavicular adenopathy by size criteria. Thyroid gland is not well-seen. ABDOMEN: Solid organs: Liver is normal in size. Gallbladder appears free of calcified gallstone.. Pancreas is normal in contours. Spleen is normal in size. No adrenal nodules. Both kidneys are normal in size, without hydronephrosis or nephrolithiasis, but they aren't impinged upon by adenopathy involving the retroperitoneum. Bilateral ureteral stents are in place. The adenopathy is symmetric, involving the aortocaval space, the para-aortic space, and deviates the kidneys somewhat laterally. At the level of the mid kidneys the adenopathy measures up to 13.9 cm transverse and 6.9 cm AP. More inferiorly near the junction of the abdomen and pelvis the adenopathy continues, confluent, measuring up to 12.9 cm transverse and 8.6 cm AP. The exact boundaries of the adenopathy is difficult to establish given the absence of intravenous contrast. More inferiorly within the area of the aortic bifurcation adenopathy diminishes significantly. Adenopathy in this area is estimated at measuring approximately 6.0 cm transverse and 4.5 cm AP. The adenopathy measures up to 18.9 cm craniocaudad.. Peritoneum and bowel: Small and large bowel loops are normal in caliber and wall thickness. No free fluid or air. Nodes and vessels: No retroperitoneal or mesenteric adenopathy by size criteria. Aorta and inferior vena cava are normal in size. Miscellaneous: No ventral hernias. PELVIS: Genitourinary: Bladder wall thickness is normal. Miscellaneous: No inguinal hernias or definite adenopathy but within the pelvis oral contrast is absent and intravenous contrast also was not administered. The distal ureteral stents appear normal related to the bladder lumen.. Bones: No suspicious bony lesions. No vertebral body compression fractures. IMPRESSION: Within the chest no pulmonary metastatic disease or mediastinal/hilar adenopathy is found. Within the abdomen there is extensive retroperitoneal adenopathy with mass effect upon the course of the ureters bilaterally in the kidneys, deviating the structures laterally, but ureteral stents are present, without residual hydronephrosis. The adenopathy diminishes and appears to terminate at the upper pelvis. Ureteral stents persist in a normal course to the bladder. As noted, quality of visualization is somewhat limited due to the absence of intravenous contrast for the entire study in the absence of oral contrast having not reached the pelvis. Dictated by: Glen Rose M.D. on 09/17/2019 at 17:00 Approved by: Glen Rose M.D. on 09/17/2019 at 17:09
== END ==
PROVIDERS: Referring Provider Internal Medicine Hematology & Oncology; Visit Provider Internal Medicine Hematology & Oncology
DX: C62.91 Malignant neoplasm of right testis, unspecified whether descended or undescended (principal); R59.0 Localized enlarged lymph nodes
CPT/HCPCS: 71250; 74176

== ENCOUNTER 2019-10-02 20:45 | Emergency (ER) | payer OTHER, SELFPAY ==
[2019-10-02 20:52] VITALS: BP 135/65; PULSE 106; RESP 16; TEMP 36.8; O2SAT 99
--- NOTE | 2019-10-02 21:04 | ED_ITS ---
HPI - General Adult General Chief complaint: Fever Stated complaint: cancer patient, has a fever Time Seen by Provider: 10/02/19 20:58 Source: patient Mode of arrival: Ambulatory Limitations: no limitations History of Present Illness HPI narrative: Patient is a 39-year-old male. Has testicular cancer. Back on 09/20/2019 underwent his 1st course of chemotherapy. Dr. Bautista is his oncologist. Not currently on any prophylactic antibiotics. Past couple days has had with the patient describes as a ?low-grade fever ?he states that he is taking his temperature on a daily basis. His fevers have been in the 98-99 d egree range. Patient states that he normally runs in the 97 degree range. Today he had a 1 time temperature of 100.2?. He states that other than a slight headache he is relatively asymptomatic. He contacted the oncologist on-call who told him to come to the emergency department for evaluation. Related Data Home Medications Medication Instructions Recorded Confirmed Eliquis 5 mg PO BID 09/02/19 09/20/19 acetaminophen [Tylenol] 650 mg PO Q4H PRN 09/02/19 09/20/19 cyclobenzaprine 5 mg PO TID PRN 09/02/19 09/20/19 oxycodone 5 mg PO Q6H PRN 09/02/19 09/20/19 polyethylene glycol 3350 [Miralax] 17 g PO DAILY 09/02/19 09/20/19 sennosides [senna] 8.6 mg PO BID 09/02/19 09/20/19 Previous Rx's Medication Instructions Recorded ondansetron 8 mg PO Q6HR PRN #60 tab 09/21/19 amoxicillin-pot clavulanate 1 tab PO BID #9 tab 10/02/19 [Augmentin] ciprofloxacin HCl 500 mg PO BID #9 tab 10/02/19 Allergies Allergy/AdvReac Type Severity Reaction Status Date / Time No Known Drug Allergies Allergy Verified 10/02/19 20:56 Review of Systems Constitutional Constitutional: Reports fever(s) and Reports headache(s) Eyes Eyes: Denies change in vision ENT Ears, Nose, Mouth, and Throat: Reports headache(s) and Denies sore throat Cardiovascular Cardiovascular: Denies chest pain and Denies dyspnea Respiratory Respiratory: Denies cough and Denies dyspnea Gastrointestinal Gastrointestinal: Denies abdominal pain, Denies nausea and Denies vomiting Musculoskeletal Musculoskeletal: Denies myalgias and Denies arthralgias Integumentary/Breasts Skin/Breast: Denies lesions and Denies rash Neurologic Neurologic: Denies behavioral changes and Reports headache(s) Psychiatric Psychiatric: Denies behavioral changes Hematologic/Lymphatic Hematologic/Lymphatic: Denies easy bleeding and Denies easy bruising Allergic/Immunologic Allergic/Immunologic: Denies urticaria Patient History Medical History Hydronephrosis, left (Acute) Hypoxia (Acute 07/25/19) Inguinal hernia (Acute) Lipoma (Acute) Multiple pulmonary emboli (Acute 07/25/19) Patient denies medical problems (Acute) Retroperitoneal lymphadenopathy (Acute) Right testicular cancer (Acute 07/2019) Weight loss, non-intentional (Acute ~07/2019) Surgical History H/O vasectomy (Acute 07/29/19) History of removal of skin mole (Acute) History of ureter stent (Acute 07/29/19) History of ureter stent (Acute 08/24/19) Hx of cystoscopy (Acute 07/29/19) S/P radical unilateral orchiectomy (Acute 07/29/19) Family History Mother Rheumatoid arthritis Father Diabetes mellitus Father Hypertension Social History household members: spouse Smoking Status: Former smoker alcohol intake: current substance use type: does not use Smoking Status: Former smoker alcohol intake frequency: holidays/special occasions only Substance Use Type: does not use Exam Initial Vital Signs Initial Vital Signs: Vital Signs Temperature 98.2 F 10/02/19 20:52 Pulse Rate 106 H 10/02/19 20:52 Respiratory Rate 16 10/02/19 20:52 Blood Pressure 135/65 10/02/19 20:52 Pulse Oximetry 99 10/02/19 20:52 Const General: cooperative, healthy appearing, comfortable and well developed Limitations: mental status not altered HENMT Head: normal to inspection and normocephalic Resp Effort & Inspection: normal respiratory effort Cardio Rate: regular rate Skin Lesions: no lesions Rashes: no rashes Neuro General: alert, awake and oriented x3 Cognition: normal cognition Speech: speech normal Gait: normal gait Extrem General: normal to inspection and capillary refill normal Psych Appearance: grossly normal and well kempt Course Orders Ordered: ED Orders 10/02/19 21:04 XR chest 1V Stat 10/02/19 21:43 Basic Metabolic Panel Stat Complete Blood Count AUTO DIFF Stat Lactate (Lactic Acid) Stat Procalcitonin Stat 10/02/19 22:00 Blood Culture Stat 10/02/19 22:20 Influenza A & B (PCR) Stat 10/02/19 23:17 Urinalysis and Microscopic Stat Urine Culture Stat Discontinued Medications Amoxicillin/Clavulanate Potassium (Augmentin 875-125 Mg) 1 tab PO NOW ONE Stop: 10/02/19 23:46 Last Admin: 10/02/19 23:59 Dose: 1 tab Documented by: DESHAUN Ciprofloxacin (Cipro) 500 mg PO NOW ONE Stop: 10/02/19 23:46 Last Admin: 10/02/19 23:59 Dose: 500 mg Documented by: DESHAUN Heparin Sodium (Porcine) (Heparin Flush (Port)) 500 unit IV PRN PRN PRN Reason: Flush Last Admin: 10/02/19 23:59 Dose: 500 unit Documented by: DESHAUN Sodium Chloride (Normal Saline 0.9%) 500 mls @ 21 mls/hr IV CONT LAURIE Last Infusion: 10/02/19 23:59 Dose: 0 mls/hr Documented by: Admin: 10/02/19 22:02 Dose: 21 mls/hr Documented by: DESHAUN Lidocaine HCl (Xylocaine 1%) 1 ml SUBCUT NOW ONE Stop: 10/02/19 21:16 Last Admin: 10/02/19 22:57 Dose: Not Given Documented by: DESHAUN Vital Signs Vital signs: Vital Signs - 8 hr 10/02/19 20:52 10/02/19 22:10 10/02/19 23:25 Temperature 98.2 F 99.1 F Pulse Rate 106 H 82 Respiratory Rate 16 20 Blood Pressure 135/65 Blood Pressure [Left Arm] 135/84 125/79 Pulse Oximetry 99 100 98 10/03/19 00:05 Temperature 98.9 F Pulse Rate Respiratory Rate Blood Pressure Blood Pressure [Left Arm] Pulse Oximetry Medical Decision Making Medical Records Medical records reviewed: Yes I reviewed the patient's medical records. Lab Data Lab results reviewed: Yes I reviewed the patient's lab results. Result diagrams: 10/02/19 21:43 10/02/19 21:43 Labs: Lab Results 10/02/19 10/02/19 10/02/19 Range/Units 21:43 21:43 21:43 WBC 1.3 L* (4.5-11.0) X10^3/uL RBC 3.59 L (4.5-5.9) X10^6/uL Hgb 9.8 L (13.5-17.5) g/dL Hct 28.8 L (41-53) % MCV 80.2 (80-100) fL MCH 27.3 (26-34) PG MCHC 34.1 (30-36) % RDW 14.7 (11.6-14.8) % Plt Count 101 L (150-400) X10^3/uL Neut % (Auto) Not Reportable Lymph % (Auto) Not Reportable [place] % (Auto) Not Reportable Eos % (Auto) Not Reportable Baso % (Auto) Not Reportable Lymph # (Auto) Not Reportable [place] # (Auto) Not Reportable Baso # (Auto) Not Reportable Total Counted 100 Seg Neutrophils % 10.0 L (38-70) % Band Neutrophils % 2.0 L (3-7) % Lymphocytes % (Manual) 72.0 H (25-45) % Atypical Lymphs % 6.0 H ( - 0) % Monocytes % (Manual) 6.0 (2-11) % Basophils % (Manual) 4.0 H (0-1) % Neutrophils # (Manual) 156 L (2217-8854) /uL RBC Morphology See below Anisocytosis 1+ H Sodium 136 L (137-145) mmol/L Potassium 4.3 (3.4-5.1) mmol/L Chloride 101 (98-107) mmol/L Carbon Dioxide 28 (22-32) mmol/L BUN 25 H (9-20) mg/dL Creatinine 1.31 H (0.66-1.25) mg/dL Estimated GFR > 60.0 (>60) mL/min BUN/Creatinine Ratio 19.1 (6-22) Glucose 106 H (70-100) mg/dL Lactate (0.7-2.1) mmol/L Calcium 9.0 (8.4-10.2) mg/dL Procalcitonin < 0.05 (<0.5) ng/mL Urine Color Urine Appearance Urine pH (4.5-8.0) Ur Specific [place] (1.000-1.035) Urine Protein (Negative) Urine Glucose (UA) (Negative) g/dL Urine Ketones (NEGATIVE) Urine Occult Blood (Negative) Urine Nitrate (Negative) Urine Bilirubin (NEGATIVE) Urine Urobilinogen (0.2) E.U./dL Ur Leukocyte Esterase (NEGATIVE) Urine RBC (0-5/HPF) Urine WBC (0-5/HPF) Urine Bacteria (None) Ur Culture Indicated? Influenza A (RT-PCR) (NEGATIVE) Influenza B (RT-PCR) (NEGATIVE) 10/02/19 10/02/19 10/02/19 Range/Units 21:43 22:20 23:17 WBC (4.5-11.0) X10^3/uL RBC (4.5-5.9) X10^6/uL Hgb (13.5-17.5) g/dL Hct (41-53) % MCV (80-100) fL MCH (26-34) PG MCHC (30-36) % RDW (11.6-14.8) % Plt Count (150-400) X10^3/uL Neut % (Auto) Lymph % (Auto) [place] % (Auto) Eos % (Auto) Baso % (Auto) Lymph # (Auto) [place] # (Auto) Baso # (Auto) Total Counted Seg Neutrophils % (38-70) % Band Neutrophils % (3-7) % Lymphocytes % (Manual) (25-45) % Atypical Lymphs % ( - 0) % Monocytes % (Manual) (2-11) % Basophils % (Manual) (0-1) % Neutrophils # (Manual) (7762-0173) /uL RBC Morphology Anisocytosis Sodium (137-145) mmol/L Potassium (3.4-5.1) mmol/L Chloride (98-107) mmol/L Carbon Dioxide (22-32) mmol/L BUN (9-20) mg/dL Creatinine (0.66-1.25) mg/dL Estimated GFR (>60) mL/min BUN/Creatinine Ratio (6-22) Glucose (70-100) mg/dL Lactate 0.7 (0.7-2.1) mmol/L Calcium (8.4-10.2) mg/dL Procalcitonin (<0.5) ng/mL Urine Color Yellow Urine Appearance Sl cloudy Urine pH 6.0 (4.5-8.0) Ur Specific [place] 1.015 (1.000-1.035) Urine Protein 1+ H (Negative) Urine Glucose (UA) Negative (Negative) g/dL Urine Ketones Negative (NEGATIVE) Urine Occult Blood 3+ H (Negative) Urine Nitrate Negative (Negative) Urine Bilirubin Negative (NEGATIVE) Urine Urobilinogen 0.2 (0.2) E.U./dL Ur Leukocyte Esterase 1+ H (NEGATIVE) Urine RBC 30-100/hpf H (0-5/HPF) Urine WBC 5-10/hpf H (0-5/HPF) Urine Bacteria Moderate (10-30) H (None) Ur Culture Indicated? Culture not indicate Influenza A (RT-PCR) Flu a negative (NEGATIVE) Influenza B (RT-PCR) Flu b negative (NEGATIVE) Imaging Data Chest x-ray: Radiologist's Impression: [address] [address] XRay Report Signed Patient: Kirk Richardson [facility]#: [id number] : 1980Acct:[id number] Age/Sex: 39 / MDate of Service: 10/02/19 Loc: ED Accession Number: [id number] Procedure: XR chest 1V Ordering Provider: Josué Lou D.O. PROCEDURE: XR CHEST 1V INDICATIONS: eval for PNA TECHNIQUE: One view of the chest was acquired. COMPARISON: [facility], , XR CHEST 1V, 09/14/2019, 15:09. FINDINGS: Surgical changes and devices: Right IJ Mediport in stable position. Lungs and pleura: Low lung volumes. Lungs are clear. No pleural effusions or pneumothorax. Mediastinum: Mediastinal contours appear normal. Heart size is normal. Bones and chest wall: No suspicious bony lesions. Overlying soft tissues appear unremarkable. IMPRESSION: 1. Low lung volumes, but no evidence of acute pulmonary disease. 2. Stable, suboptimally positioned right IJ Mediport. Dictated by: Rose Noonan M.D. on 10/02/2019 at 21:31 Approved by: Rose Noonan M.D. on 10/02/2019 at 21:33 MDM Narrative Medical decision making narrative: Patient is afebrile here. He is neutropenic which is not surprising given his chemotherapy regiment in the time since his chemotherapy. He is nontoxic appearing. Normal exam. Blood cultures were obtained and are pending. Urine culture is pending. Chest x-ray shows no signs of pneumonia. Physical exam is not consistent with meningitis given his headache and neck pain. Patient already has a scheduled appointment on Friday with oncology. I did discuss the case with Dr. Loomis who was on-call for Oncology who recommended starting the patient on Augmentin and Cipro. He was given his 1st dose of his antibiotics here in the ER was discharged home with a prescription. Patient was given strict return precautions. He expressed understanding and agreement. Discharge Plan Departure Patient Disposition: Home Clinical Impression: Neutropenia Qualifiers: Neutropenia type: unspecified Qualified Code(s): D70.9 - Neutropenia, unspecified Discharge Date/Time: 10/03/19 00:09 Instructions: Neutropenic Fever Activity Restrictions/Additional Instructions: Keep your appointment that you already have scheduled for Friday at the cancer center. Take the antibiotics as directed. Return to the emergency department for any new or worsening symptoms. [facility] prescriptions [facility] Prescriptions: New amoxicillin-pot clavulanate [Augmentin] 875-125 mg tablet 1 tab PO BID Qty: 9 RF: 0 ciprofloxacin HCl 500 mg tablet 500 mg PO BID Qty: 9 RF: 0 No Action sennosides [senna] 8.6 mg Tablet 8.6 mg PO BID RF: 0 acetaminophen [Tylenol] 325 mg Tablet 650 mg PO Q4H PRN (Reason: Pain (Scale Score 4-6)) RF: 0 polyethylene glycol 3350 [Miralax] 17 gram/dose Powder 17 g PO DAILY RF: 0 oxycodone 5 mg Tablet 5 mg PO Q6H PRN (Reason: Pain (Scale Score 4-6)) RF: 0 cyclobenzaprine 5 mg Tablet 5 mg PO TID PRN (Reason: Pain (Scale Score 4-6)) RF: 0 Eliquis 5 mg Tablet 5 mg PO BID RF: 0 ondansetron 8 mg Tablet,Disintegrating 8 mg PO Q6HR PRN (Reason: Nausea) Qty: 60 RF: 0 Referrals: Zain Murillo [Primary Care Provider] -
[2019-10-02] MEDS: LIDOCAINE 1% (PF) 2 ML (21:24)
[2019-10-02] MEDS: SODIUM CHLORIDE 0.9% 500 ML 21 ML IV (22:02)
[2019-10-02 22:05] LABS: Lactate (Lactic Acid) 0.7 mmol/L (0.7-2.1)
[2019-10-02 22:09] LABS: Hematocrit 28.8 % (41-53); Hemoglobin 9.8 g/dL (13.5-17.5); Mean Corpuscular HGB Conc 34.1 % (30-36); Mean Corpuscular Hemoglobin 27.3 PG (26-34); Mean Corpuscular Volume 80.2 fL (80-100); Platelet Count 101 X10^3/uL (150-400); Red Blood Cell Count 3.59 X10^6/uL (4.5-5.9); Red Cell Distribution Width 14.7 % (11.6-14.8)
[2019-10-02 22:10] VITALS: BP 135/84; PULSE 82; RESP 20; TEMP 37.3; O2SAT 100
[2019-10-02 22:12] LABS: BUN Creatinine Ratio 19.1 (6-22); Blood Urea Nitrogen 25 mg/dL (9-20); Carbon Dioxide 28 mmol/L (22-32); Chloride 101 mmol/L (98-107); Estimated Glomerular Filt Rate > 60.0 mL/min (>60); Glucose 106 mg/dL (70-100); HEMOLYSIS < 15 (0-50); Potassium 4.3 mmol/L (3.4-5.1); Sodium 136 mmol/L (137-145)
[2019-10-02 22:23] LABS: Add Manual Diff / Slide Review YES; White Blood Cell Count 1.3 X10^3/uL (4.5-11.0)
[2019-10-02 22:28] LABS: Procalcitonin < 0.05 ng/mL (<0.5)
[2019-10-02 22:53] LABS: Total Cells Counted 100
[2019-10-02 22:54] LABS: Anisocytosis 1+; Neutrophils Absolute Manual 156 /uL (3000-5900)
[2019-10-02 22:58] LABS: Influenza A - CEPHEID Flu A NEGATIVE (NEGATIVE); Influenza B - CEPHEID Flu B NEGATIVE (NEGATIVE)
[2019-10-02 23:25] VITALS: BP 125/79; O2SAT 98
[2019-10-02 23:27] LABS: Appearance Urine UA SL CLOUDY; Bilirubin Urine UA NEGATIVE (NEGATIVE); Color Urine UA YELLOW; Glucose Urine UA NEGATIVE (Negative); Ketones Urine UA NEGATIVE (NEGATIVE); Leukocyte Esterase Urine UA 1+ (NEGATIVE); Nitrite Urine UA NEGATIVE (Negative); Occult Blood Urine UA 3+ (Negative); Protein Urine UA 1+ (Negative); Specific Gravity Urine UA 1.015 (1.000-1.035); Urobilinogen Urine UA 0.2 E.U./dL (0.2)
[2019-10-02 23:43] LABS: Bacteria Urine Moderate (10-30); RBC Urine 30-100/HPF (0-5/HPF); WBC Urine 5-10/HPF (0-5/HPF)
[2019-10-02] MEDS: CIPROFLOXACIN 500 MG TABLET PO (23:59)
[2019-10-02] MEDS: AMOXICILLIN/CLAV 875/125 MG 1 TAB PO (23:59)
[2019-10-03 00:05] VITALS: TEMP 37.2
== END 2019-10-03 00:09 | disposition home or self-care (01) ==
PROVIDERS: Emergency Provider Emergency Medicine
DX: D70.9 Neutropenia, unspecified (principal); C62.91 Malignant neoplasm of right testis, unspecified whether descended or undescended
CPT/HCPCS: 36415; 71045; 80048; 81001; 83605; 84145; 85025; 87040; 87077; 87086; 87186; 87502; 96360; 96361; 99284; 99285; J1642

== ENCOUNTER → 2019-10-25 08:46 | Outpatient (CLI) | payer OTHER, SELFPAY ==
--- NOTE | 2019-10-25 08:47 | DI.CT.S_ITS ---
PROCEDURE: CT CHEST ABD PEL WO CON INDICATIONS: Restaging testicular cancer TECHNIQUE: After the administration of oral contrast, 5 mm thick sections acquired from the lung apices to the symphysis pubis. 5 mm thick coronal and sagittal reformats acquired, with additional 7 mm coronal MIP reformats through the lungs. For radiation dose reduction, the following was used: automated exposure control, adjustment of mA and/or kV according to patient size. COMPARISON: [facility], CT, CT CHEST ABD PEL WO CON, 09/17/2019, 13:17. FINDINGS: Image quality: Excellent. CHEST: Lungs and pleura: No acute pulmonary opacities. No pleural effusions or pneumothorax. Central and peripheral airways are patent are normal in caliber. Mediastinum: Heart size is normal. No pericardial effusion. No mediastinal adenopathy by CT size criteria. Thoracic aorta and central pulmonary arteries are normal in size. Esophagus is normal in caliber. No hiatal hernia. Chest wall: No axillary or supraclavicular adenopathy by size criteria. Thyroid gland is within normal limits. ABDOMEN: Solid organs: Liver is normal in size. Gallbladder is unremarkable. Pancreas is normal in contours. Spleen is normal in size. No adrenal nodules. Bilateral kidneys are normal in size. Bilateral ureteral stents are present. No renal stone or significant hydronephrosis is seen. Mild bilateral periureteral fat stranding is seen. Previously described extensive retroperitoneal lymphadenopathy encasing bilateral ureters has significantly decreased. Peritoneum and bowel: Small and large bowel loops are normal in caliber and wall thickness. No free fluid or air. Nodes and vessels: Previously described extensive retroperitoneal lymphadenopathy has significantly improved in size now measures in aggregate 5.8 x 4.1 x 11 cm in its largest transverse, AP and craniocaudal dimensions compared to 12.9 x 8.6 x 18.9 cm in size on previous study. No gross mesenteric lymphadenopathy by size criteria. Aorta and inferior vena cava are normal in size. Miscellaneous: No ventral hernias. PELVIS: Genitourinary: Bladder wall thickness is normal. Miscellaneous: No inguinal hernias or adenopathy. Bones: No suspicious bony lesions. No vertebral body compression fractures. IMPRESSION: 1. Interval significant decrease in the extent of retroperitoneal lymphadenopathy encasing bilateral ureters seen on previous study. No new areas of lymphadenopathy is seen in chest, abdomen or pelvis. 2. Bilateral ureteral stents in place. No hydronephrosis. Mild bilateral perirenal fat stranding likely represent residual adenopathy. 3. No evidence of metastatic disease in bilateral lung cespedes. Dictated by: Miguel Angel Mclain M.D. on 10/25/2019 at 10:05 Approved by: Miguel Angel Mclain M.D. on 10/25/2019 at 10:50
== END ==
PROVIDERS: Referring Provider Internal Medicine Hematology & Oncology; Visit Provider Internal Medicine Hematology & Oncology
DX: C62.91 Malignant neoplasm of right testis, unspecified whether descended or undescended (principal); R59.0 Localized enlarged lymph nodes
CPT/HCPCS: 71250; 74176

== ENCOUNTER → 2019-11-29 11:05 | Outpatient (CLI) | payer OTHER, SELFPAY ==
--- NOTE | 2019-11-29 11:06 | DI.CT.S_ITS ---
PROCEDURE: CT CHEST ABD PEL WO CON INDICATIONS: testicular cancer TECHNIQUE: After the administration of oral contrast, 5 mm thick sections acquired from the lung apices to the symphysis pubis. 5 mm thick coronal and sagittal reformats acquired, with additional 7 mm coronal MIP reformats through the lungs. For radiation dose reduction, the following was used: automated exposure control, adjustment of mA and/or kV according to patient size. COMPARISON: [facility], CT, CT CHEST ABD PEL WO CON, 10/25/2019, 9:45. [facility], CT, CT ANGIO CHEST PE PROTOCOL, 07/25/2019, 9:46. [facility], CT, CT PEL WO CON, 09/14/2019, 22:12. [facility], CT, CT CHEST ABD PEL WO CON, 09/17/2019, 13:17. FINDINGS: Image quality: Excellent. CHEST: Lungs and pleura: No acute pulmonary opacities. No pleural effusions or pneumothorax. Central and peripheral airways are patent are normal in caliber. Mediastinum: Heart size is normal. No pericardial effusion. No mediastinal adenopathy by CT size criteria. Thoracic aorta and central pulmonary arteries are normal in size. Esophagus is normal in caliber. No hiatal hernia. Chest wall: No axillary or supraclavicular adenopathy by size criteria. Thyroid gland demonstrates no significant CT abnormality. There is a right-sided chest port is seen, with the tip within the superior aspect of the superior vena cava. Incidental note is made of bilateral gynecomastia. ABDOMEN: Solid organs: Liver is normal in size. Gallbladder wall does not appear thickened. Pancreas is normal in contours. Spleen is mildly enlarged, measuring 14.2 cm transversely. No adrenal nodules. Both kidneys are normal in size, without hydronephrosis or nephrolithiasis. Bilateral double-J stents are seen. Peritoneum and bowel: Small and large bowel loops are normal in caliber and wall thickness. No free fluid or air. Nodes and vessels: Fibrotic appearing changes can be seen involving the distal retroperitoneum. No focally enlarged retroperitoneal lymph nodes are seen. No enlarged mesenteric lymph nodes are seen. Aorta and inferior vena cava are normal in size. Miscellaneous: A mild periumbilical hernia is seen, containing fat. PELVIS: Genitourinary: Bladder wall thickness is normal. Miscellaneous: No enlarged inguinal or pelvic lymph nodes are seen. There is a fat-containing left inguinal hernia seen. Bones: No suspicious bony lesions. No vertebral body compression fractures. IMPRESSION: Fibrotic appearing changes of the retroperitoneum, without focal susan enlarged lymph nodes. The appearance is most likely related to a combination of posttreatment changes with fibrotic changes with matted lymph nodes. The appearance is overall improved compared to the 10/25/19 examination. Incidental note is made of: Right-sided chest port Gynecomastia Mild splenomegaly Bilateral double-J stents Fat-containing periumbilical hernia Fat-containing left inguinal hernia Dictated by: Braden Nunn M.D. on 11/29/2019 at 15:17 Approved by: Braden Nunn M.D. on 11/29/2019 at 15:25
== END ==
PROVIDERS: Referring Provider Internal Medicine Hematology & Oncology; Visit Provider Internal Medicine Hematology & Oncology
DX: C62.91 Malignant neoplasm of right testis, unspecified whether descended or undescended (principal); N62 Hypertrophy of breast; R16.1 Splenomegaly, not elsewhere classified; K42.9 Umbilical hernia without obstruction or gangrene; K40.90 Unilateral inguinal hernia, without obstruction or gangrene, not specified as recurrent
CPT/HCPCS: 71250; 74176

== ENCOUNTER → 2019-12-23 12:35 | Outpatient (CLI) | payer OTHER, SELFPAY ==
[2019-12-23 13:40] LABS: Appearance Urine UA CLEAR; Bilirubin Urine UA NEGATIVE (NEGATIVE); Color Urine UA YELLOW; Glucose Urine UA NEGATIVE (Negative); Ketones Urine UA NEGATIVE (NEGATIVE); Leukocyte Esterase Urine UA 3+ (NEGATIVE); Nitrite Urine UA NEGATIVE (Negative); Occult Blood Urine UA 3+ (Negative); Protein Urine UA 2+ (Negative); Urobilinogen Urine UA 0.2 E.U./dL (0.2); pH Urine UA 5.5 (4.5-8.0)
[2019-12-23 13:45] LABS: RBC Urine 5-10/HPF (0-5/HPF); WBC Urine 10-30/HPF (0-5/HPF)
[2019-12-23 13:46] LABS: Bacteria Urine Many (>30); Culture Indicated Urine Specimen Cultured
== END ==
PROVIDERS: Visit Provider Student in an Organized Health Care Education/Training Program
DX: D49.59 Neoplasm of unspecified behavior of other genitourinary organ (principal)
CPT/HCPCS: 81001; 87077; 87086; 87185; 87186

== ENCOUNTER → 2020-02-29 09:53 | Outpatient (CLI) | payer OTHER, SELFPAY ==
--- NOTE | 2020-02-29 11:38 | DI.CT.S_ITS ---
PROCEDURE: CT ABDOMEN PELVIS W CON INDICATIONS: seminoma TECHNIQUE: After the administration of oral and intravenous contrast, 5 mm thick sections acquired from the diaphragms to the symphysis. 5 mm thick coronal and sagittal reformats were performed. For radiation dose reduction, the following was used: automated exposure control, adjustment of mA and/or kV according to patient size. COMPARISON: [facility], [place], [place] PET CT FUSION SKULL 2 THIGH, 01/12/2020, 17:01. [facility], CT, CT CHEST ABD PEL WO CON, 11/29/2019, 12:08. [facility], CT, CT CHEST ABD PEL WO CON, 10/25/2019, 9:45. FINDINGS: Image quality: Excellent. ABDOMEN: Lung bases: Lung bases are clear. Heart size is normal. Solid organs: Liver is normal in size and enhancement. Gallbladder is within normal limits. Biliary system is non-dilated. Pancreas enhances normally. Spleen is normal in size and enhancement. No adrenal nodules. Kidneys are normal in size and enhancement. Bilateral ureteral stents have been removed in the interval since prior PET/CT scan obtained January 12, 2020. There is mild right and [id number] left hydronephrosis. Peritoneum and bowel: Stomach, small bowel, and colon loops are normal in caliber and wall thickness. No free fluid or air. Nodes and vessels: There is new left periaortic retroperitoneal lymphadenopathy medially inferior to the left renal vein and adjacent to the medial margin of the inferior pole of the left kidney. Distal periaortic and aortocaval retroperitoneal lymph nodes are stable in size and contour compared to January 12, 2020 PET/CT scan under decreased in size compared to November 29, 2019 CT scan of the chest , abdomen and pelvis. No mesenteric adenopathy. Aorta and inferior vena cava are normal in caliber. Miscellaneous: Small fat containing umbilical hernia is stable. PELVIS: Genitourinary: Bladder wall thickness is normal. Miscellaneous: No inguinal adenopathy. Small fat containing left inguinal hernia is stable. Bones: No suspicious bony lesions. No vertebral body compression fractures. IMPRESSION: 1. 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 2. Mild right and [id number] left hydronephrosis. Dictated by: Heide Durham MD, PhD on 02/29/2020 at 12:18 Approved by: Heide Durham MD, PhD on 02/29/2020 at 12:33
== END ==
PROVIDERS: Referring Provider Internal Medicine Hematology & Oncology; Visit Provider Internal Medicine Hematology & Oncology
DX: C62.91 Malignant neoplasm of right testis, unspecified whether descended or undescended (principal); R59.0 Localized enlarged lymph nodes; N13.30 Unspecified hydronephrosis
CPT/HCPCS: 74177; Q9967

== ENCOUNTER → 2020-03-06 12:38 | Outpatient (CLI) | payer OTHER, SELFPAY ==
--- NOTE | 2020-03-06 12:39 | DI.RAD.S_ITS ---
PROCEDURE: XR CHEST 2V INDICATIONS: recurrent seminoma TECHNIQUE: 2 views of the chest were acquired. COMPARISON: [facility], CR, XR CHEST 1V, 10/02/2019, 21:11. [facility], CR, XR CHEST 1V, 09/14/2019, 15:09. FINDINGS: Surgical changes and devices: Port-A-Cath from right-sided approach appears to be positioned at the expected site of the confluence of the right and left brachiocephalic veins.. Lungs and pleura: Lungs are clear considering reduced inspiratory volume on the right and chronic mild right hemidiaphragm elevation. No pleural effusions or pneumothorax. Mediastinum: Mediastinal contours are normal. Heart size is normal. Bones and chest wall: No suspicious bony abnormalities. Soft tissues appear unremarkable. IMPRESSION: No sign of adenopathy found. No lung mass identified. Port-A-Cath appears in a relatively high position with its tip at the expected confluence of the right and left brachiocephalic veins. Dictated by: Glen Rose M.D. on 03/06/2020 at 13:00 Approved by: Glen Rose M.D. on 03/06/2020 at 13:01
== END ==
PROVIDERS: Referring Provider Internal Medicine Hematology & Oncology; Visit Provider Internal Medicine Hematology & Oncology
DX: C62.91 Malignant neoplasm of right testis, unspecified whether descended or undescended (principal); Z95.828 Presence of other vascular implants and grafts
CPT/HCPCS: 71046

== ENCOUNTER 2020-03-09 14:39 | Emergency (ER) | payer OTHER, SELFPAY ==
[2020-03-09 14:44] VITALS: BP 133/79; PULSE 58; RESP 16; TEMP 36.8; O2SAT 97; BMI 36.1
--- NOTE | 2020-03-09 15:03 | DI.US.S_ITS ---
PROCEDURE: US RENAL COMPLETE INDICATIONS: WORSENING LEFT FLANK PAIN SINCE CATSCAN/KNOWN HYDRONEPHROSIS TECHNIQUE: Real-time scanning was performed of the kidneys and bladder, with image documentation. COMPARISON: [facility], CT, CT ABDOMEN PELVIS W CON, 02/29/2020, 10:54. FINDINGS: Kidneys: Kidneys are normal in size. Right kidney measures 11.5 cm long; left kidney measures 11.7 cm long. Right renal cortical thickness is 1.5 cm; left renal cortical thickness is 1.4 cm. Renal cortical echotexture is normal. There is mild to moderate left hydronephrosis that does not appear significantly progressed when compared to the CT from 02/29/2020. No right-sided hydronephrosis or nephrolithiasis. No suspicious solid mass lesions. Bladder: Pre-void bladder volume is 140 mL. Post-void residual is 3 mL. Pre-void images demonstrate no intraluminal masses or stones. On pre-void images, bilateral ureteral jets are noted with color Doppler interrogation. (Of note, ureteral jets may not be detectable in up to 25% of cases due to insufficient differences in specific gravity between ureteral and bladder urine). Miscellaneous: No free pelvic fluid. IMPRESSION: Stable mild to moderate left hydronephrosis when compared to the CT from 02/29/2020. No nephrolithiasis is seen. Bilateral ureteral jets are noted. Dictated by: Jose J Vaughan M.D. on 03/09/2020 at 16:19 Approved by: Jose J Vaughan M.D. on 03/09/2020 at 16:23
--- NOTE | 2020-03-09 15:08 | ED.MALEGU ---
HPI - Male Genitourinary <ZAK Hickey - Last Filed: 03/09/20 21:01> General Chief complaint: Urogenital-Male Stated complaint: back pain thinks it has to do with his kidneys Time Seen by Provider: 03/09/20 14:44 Source: patient Mode of arrival: Ambulatory History of Present Illness HPI Narrative: 39yo male with a history of testicular cancer (which has recently returned since 4 days ago to lymph nodes), and hydronephrosis related to testicular cancer with stent placement, presents emergency department for left flank pain of started today. Patient had a CT completed on 02/29/2020 noting left hydronephrosis, he had a discussion with Urology and has an intake appointment in a month to schedule a stent placement for hydronephrosis. However, developed increasing pain and is concerned. Patient is scheduled to resume chemo reports testicular cancer, last dose of chemo was in November 2019. Patient reports intermittent nausea. States he usually takes oxycodone and Tylenol for pain, his taken Tylenol today but has not taken any oxycodone. He denies any blood in urine, vomiting, chest pain, shortness of breath, high fevers, cough, sore throat, or other concerns. He does report increasing fatigue. Related Data Home Medications Medication Instructions Recorded Confirmed Eliquis 5 mg PO BID 09/02/19 03/14/20 acetaminophen [Tylenol] 650 mg PO Q4H PRN 09/02/19 03/14/20 cyclobenzaprine 5 mg PO TID PRN 09/02/19 03/14/20 oxycodone 5 mg PO Q6H PRN 09/02/19 03/14/20 polyethylene glycol 3350 [Miralax] 17 g PO PRN PRN 09/02/19 03/14/20 sennosides [senna] 8.6 mg PO PRN PRN 09/02/19 03/14/20 Previous Rx's Medication Instructions Recorded ondansetron 8 mg PO Q6HR PRN #60 tab 09/21/19 oxycodone 5 mg PO Q6H PRN #10 tab 03/09/20 Allergies Allergy/AdvReac Type Severity Reaction Status Date / Time No Known Drug Allergies Allergy Verified 03/09/20 14:46 Review of Systems <ZAK Hickey - Last Filed: 03/09/20 21:01> Review of Systems Narrative: REVIEW OF SYSTEMS: GENERAL: Denies fever or chills. HENT: No head trauma. EYES: No loss of vision, double vision, eye pain, or irritation. CARDIOVASCULAR: No chest pain or syncope. RESPIRATORY: No shortness of breath or cough. GASTROINTESTINAL: No vomiting, diarrhea, or constipation. GENITOURINARY: Reports left flank pain, see HPI. MUSCULOSKELETAL: No pain, weakness, or deformities. INTEGUMENTARY: No rash, lesions, or pruritus. NEURO: No numbness or tingling. PSYCH: No behavior or mood changes. Patient History <ZAK Hickey - Last Filed: 03/09/20 21:01> Medical History Hydronephrosis, left (Acute) Hypoxia (Acute 07/25/19) Inguinal hernia (Acute) Lipoma (Acute) Multiple pulmonary emboli (Acute 07/25/19) Patient denies medical problems (Acute) Retroperitoneal lymphadenopathy (Acute) Right testicular cancer (Acute 07/2019) Weight loss, non-intentional (Acute ~07/2019) Surgical History H/O vasectomy (Acute 07/29/19) History of removal of skin mole (Acute) History of ureter stent (Acute 07/29/19) History of ureter stent (Acute 08/24/19) Hx of cystoscopy (Acute 07/29/19) S/P radical unilateral orchiectomy (Acute 07/29/19) Family History Mother Rheumatoid arthritis Father Diabetes mellitus Father Hypertension Social History household members: spouse Smoking Status: Former smoker alcohol intake: current substance use type: does not use Smoking Status: Former smoker alcohol intake frequency: a few times a week Alcohol type: beer Substance Use Type: does not use Exam <ZAK Hickey - Last Filed: 03/09/20 21:01> Initial Vital Signs Initial Vital Signs: Vital Signs Temperature 98.2 F 03/09/20 14:44 Pulse Rate 58 L 03/09/20 14:44 Respiratory Rate 16 03/09/20 14:44 Blood Pressure 133/79 03/09/20 14:44 Pulse Oximetry 97 03/09/20 14:44 PHYSICAL EXAMINATION: GENERAL: Well groomed, alert, and cooperative. Answers questions promptly and appropriately. Vital signs noted. HENT: Normocephalic, atraumatic. Ear canals patent. Oral mucosa is pink and moist. EYES: Conjunctiva pink, sclera white, no periorbital swelling. CHEST: Normal to inspection and without deformities. CARDIOVASCULAR: S1 and S2 sounds normal. Regular rate and rhythm, no murmurs, clicks, or bruits. No pedal edema. RESPIRATORY: Normal respiratory rate, trachea midline, airway patent. No stridor, nasal flaring or accessory muscle use. Lungs are clear in all cespedes without wheeze, rhonchi, or crackles. GASTROINTESTINAL: Bowel sounds normoactive. Abdomen is soft and non-tender. No organomegaly. : Left CVA tenderness. MUSCULOSKELETAL: Normal gait and coordination. Equal tone and mass bilaterally. EXTREMITIES: CMS intact. Moves all extremities. SKIN: Warm, dry, soft, appropriate color for ethnicity. No lesions, rashes, or wounds. NEURO: Alert and Oriented X 3. Good coordination. No ataxia, or sensory deficits, or cognitive issues. PSYCH: Appropriate affect and mood. <Sanjeev Eldridge MD - Last Filed: 04/03/20 07:14> Initial Vital Signs Initial Vital Signs: Vital Signs Temperature 98.2 F 03/09/20 14:44 Pulse Rate 58 L 03/09/20 14:44 Respiratory Rate 16 03/09/20 14:44 Blood Pressure 133/79 03/09/20 14:44 Pulse Oximetry 97 03/09/20 14:44 Course <ZAK Hickey - Last Filed: 03/09/20 21:01> Course Course Narrative: [id number]: I spoke with Urology, Dr. Nayak. Discussed patient's history, test results, and hydronephrosis. He recommend urine culture and ED referral for further expedited follow-up. Orders Ordered: Discontinued Medications Oxycodone/Acetaminophen (Percocet 5/325) 1 tab PO NOW ONE Stop: 03/09/20 15:06 Last Admin: 03/09/20 15:33 Dose: 1 tab Documented by: [place] Vital Signs Vital signs: Vital Signs - 8 hr 03/09/20 14:44 03/09/20 16:51 Temperature 98.2 F Pulse Rate 58 L 78 Respiratory Rate 16 Blood Pressure 133/79 125/82 Pulse Oximetry 97 99 <Sanjeev Eldridge MD - Last Filed: 04/03/20 07:14> Orders Ordered: Discontinued Medications Oxycodone/Acetaminophen (Percocet 5/325) 1 tab PO NOW ONE Stop: 03/09/20 15:06 Last Admin: 03/09/20 15:33 Dose: 1 tab Documented by: [place] Vital Signs Vital signs: Vital Signs - 8 hr 03/09/20 14:44 03/09/20 16:51 Temperature 98.2 F Pulse Rate 58 L 78 Respiratory Rate 16 Blood Pressure 133/79 125/82 Pulse Oximetry 97 99 MDM - Male Genitourinary <ZAK Hickey - Last Filed: 03/09/20 21:01> Medical Records Attestation: I reviewed the patient's medical records. Lab Data Attestation: I reviewed the patient's lab results. Result diagrams: 03/09/20 16:12 03/09/20 16:12 Labs: Lab Results 03/09/20 03/09/20 Range/Units 16:12 16:12 WBC 11.6 H (4.5-11.0) X10^3/uL RBC 5.19 (4.5-5.9) X10^6/uL Hgb 14.4 (13.5-17.5) g/dL Hct 43.4 (41-53) % MCV 83.7 (80-100) fL MCH 27.8 (26-34) PG MCHC 33.2 (30-36) % RDW 15.1 H (11.6-14.8) % Plt Count 183 (150-400) X10^3/uL Neut % (Auto) 84.2 H (50-75) % Lymph % (Auto) 10.9 L (25-40) % Marion % (Auto) 4.4 (3-14) % Eos % (Auto) 0.1 L (2-4) % Baso % (Auto) 0.4 (0-2) % Neut # (Auto) 9800 H (9343-3453) /uL Lymph # (Auto) 1300 (3956-1549) /uL Marion # (Auto) 500 (0-900) /uL Eos # (Auto) 0 (0-450) /uL Baso # (Auto) 0 (0-100) /uL Sodium 136 L (137-145) mmol/L Potassium 4.4 (3.4-5.1) mmol/L Chloride 103 (98-107) mmol/L Carbon Dioxide 26 (22-32) mmol/L BUN 29 H (9-20) mg/dL Creatinine 1.20 (0.66-1.25) mg/dL Estimated GFR > 60.0 (>60) mL/min BUN/Creatinine Ratio 24.2 H (6-22) Glucose 103 H (70-100) mg/dL Calcium 9.5 (8.4-10.2) mg/dL Total Bilirubin 0.5 (0.2-1.3) mg/dL AST 29 (17-59) IU/L ALT 36 (<50) IU/L Alkaline Phosphatase 85 (38-126) U/L Total Protein 8.5 H (6.3-8.2) g/dL Albumin 4.7 (3.5-5.0) g/dL Globulin 3.8 (1.7-4.1) g/dL Albumin/Globulin Ratio 1.2 (1.0-2.8) Urine Dip Bedside Urine Glucose Negative Bedside Urine Bilirubin - Negative Bedside Urine Ketone - Negative Urine Specific [place] 1.020 Bedside Urine Occult Blood - Negative Bedside Urine pH 6.0 Bedside Urine Protein +/- 15 Bedside Urine Urobilinogen - Negative Bedside Urine Nitrite - Negative Bedside Urine Leukocytes - Negative Esterase Imaging Data Renal US: Radiologist's Impression: [address] [address] Ultrasound Report Signed Patient: Kirk Richardson [facility]#: [id number] : 1980Acct:[id number] Age/Sex: 39 / MDate of Service: 03/09/20 Loc: ED Accession Number: [id number] Procedure: US renal complete Ordering Provider: Yuliana Cheung PROCEDURE: US RENAL COMPLETE INDICATIONS: WORSENING LEFT FLANK PAIN SINCE CATSCAN/KNOWN HYDRONEPHROSIS TECHNIQUE: Real-time scanning was performed of the kidneys and bladder, with image documentation. COMPARISON: [facility], CT, CT ABDOMEN PELVIS W CON, 02/29/2020, 10:54. FINDINGS: Kidneys: Kidneys are normal in size. Right kidney measures 11.5 cm long; left kidney measures 11.7 cm long. Right renal cortical thickness is 1.5 cm; left renal cortical thickness is 1.4 cm. Renal cortical echotexture is normal. There is mild to moderate left hydronephrosis that does not appear significantly progressed when compared to the CT from 02/29/2020. No right-sided hydronephrosis or nephrolithiasis. No suspicious solid mass lesions. Bladder: Pre-void bladder volume is 140 mL. Post-void residual is 3 mL. Pre-void images demonstrate no intraluminal masses or stones. On pre-void images, bilateral ureteral jets are noted with color Doppler interrogation. (Of note, ureteral jets may not be detectable in up to 25% of cases due to insufficient differences in specific gravity between ureteral and bladder urine). Miscellaneous: No free pelvic fluid. IMPRESSION: Stable mild to moderate left hydronephrosis when compared to the CT from 02/29/2020. No nephrolithiasis is seen. Bilateral ureteral jets are noted. Dictated by: Jose J Vaughan M.D. on 03/09/2020 at 16:19 Approved by: Jose J Vaughan M.D. on 03/09/2020 at 16:23 MDM Narrative Medical decision making narrative: 39-year-old male with history of testicular cancer and known hydronephrosis, presents emergency department for left flank pain. I suspect pain may be related to hydronephrosis which appears stable the ultrasound, renal function intact, no bacteria seen in urine. Patient is hemodynamically stable without tachycardia or fever, less suspicion for pyelonephritis. I spoke with Urology, who recommended urine culture despite POC. Urine was sent for culture. Referral was placed per Dr. Nayak for expedited follow-up. Patient was given pain medication per request. Return precautions given for new or worsening symptoms. Patient agreed to plan of care verbalized understanding. <Sanejev Eldridge MD - Last Filed: 04/03/20 07:14> Lab Data Labs: Lab Results 03/09/20 03/09/20 Range/Units 16:12 16:12 WBC 11.6 H (4.5-11.0) X10^3/uL RBC 5.19 (4.5-5.9) X10^6/uL Hgb 14.4 (13.5-17.5) g/dL Hct 43.4 (41-53) % MCV 83.7 (80-100) fL MCH 27.8 (26-34) PG MCHC 33.2 (30-36) % RDW 15.1 H (11.6-14.8) % Plt Count 183 (150-400) X10^3/uL Neut % (Auto) 84.2 H (50-75) % Lymph % (Auto) 10.9 L (25-40) % Marion % (Auto) 4.4 (3-14) % Eos % (Auto) 0.1 L (2-4) % Baso % (Auto) 0.4 (0-2) % Neut # (Auto) 9800 H (1102-1786) /uL Lymph # (Auto) 1300 (2456-9863) /uL Marion # (Auto) 500 (0-900) /uL Eos # (Auto) 0 (0-450) /uL Baso # (Auto) 0 (0-100) /uL Sodium 136 L (137-145) mmol/L Potassium 4.4 (3.4-5.1) mmol/L Chloride 103 (98-107) mmol/L Carbon Dioxide 26 (22-32) mmol/L BUN 29 H (9-20) mg/dL Creatinine 1.20 (0.66-1.25) mg/dL Estimated GFR > 60.0 (>60) mL/min BUN/Creatinine Ratio 24.2 H (6-22) Glucose 103 H (70-100) mg/dL Calcium 9.5 (8.4-10.2) mg/dL Total Bilirubin 0.5 (0.2-1.3) mg/dL AST 29 (17-59) IU/L ALT 36 (<50) IU/L Alkaline Phosphatase 85 (38-126) U/L Total Protein 8.5 H (6.3-8.2) g/dL Albumin 4.7 (3.5-5.0) g/dL Globulin 3.8 (1.7-4.1) g/dL Albumin/Globulin Ratio 1.2 (1.0-2.8) Urine Dip Bedside Urine Glucose Negative Bedside Urine Bilirubin - Negative Bedside Urine Ketone - Negative Urine Specific [place] 1.020 Bedside Urine Occult Blood - Negative Bedside Urine pH 6.0 Bedside Urine Protein +/- 15 Bedside Urine Urobilinogen - Negative Bedside Urine Nitrite - Negative Bedside Urine Leukocytes - Negative Esterase Discharge Plan Departure Patient Disposition: Home Clinical Impression: Hydronephrosis Discharge Date/Time: 03/09/20 17:23 Instructions: DI for Hydronephrosis-Adult Activity Restrictions/Additional Instructions: Thank you for entrusting me with your care today. As discussed, your kidney function and swelling around your kidney appears to be stable. I have spoken to urologist, Dr. Nayak and placed a referral in hopes to expedite your appointment. If they do not call you within the week, please give them a call next week. You have been prescribed a narcotic medication, this medication can make you drowsy. Do not drive while using this medication or perform activities that require mental alertness. These medications can also make you constipated, please use [id number] docusate sodium as needed for constipation. Your prescription was sent to [facility] in [place]. Please return emergency department for any new or worsening symptoms such as high fevers, blood in urine, severe pain, or other concerns. Prescriptions: New oxycodone 5 mg tablet 5 mg PO Q6H PRN (Reason: pain) Qty: 10 RF: 0 No Action sennosides [senna] 8.6 mg Tablet 8.6 mg PO PRN PRN (Reason: Constipation) RF: 0 acetaminophen [Tylenol] 325 mg Tablet 650 mg PO Q4H PRN (Reason: Pain (Scale Score 4-6)) RF: 0 polyethylene glycol 3350 [Miralax] 17 gram/dose Powder 17 g PO PRN PRN (Reason: Constipation) RF: 0 oxycodone 5 mg Tablet 5 mg PO Q6H PRN (Reason: Pain (Scale Score 4-6)) RF: 0 cyclobenzaprine 5 mg Tablet 5 mg PO TID PRN (Reason: Pain (Scale Score 4-6)) RF: 0 Eliquis 5 mg Tablet 5 mg PO BID RF: 0 ondansetron 8 mg Tablet,Disintegrating 8 mg PO Q6HR PRN (Reason: Nausea) Qty: 60 RF: 0 Referrals: Zain Murillo [Primary Care Provider] - Ban Nayak MD [Physician] -
[2020-03-09] MEDS: OXYCODONE/ACETAMINOPHEN 5/325 TABLET 1 TAB PO (15:33)
[2020-03-09 16:19] LABS: Add Manual Diff / Slide Review NO; Basophils Absolute Auto 0 /uL (0-100); Basophils Percent Auto 0.4 % (0-2); Eosinophils Absolute Auto 0 /uL (0-450); Eosinophils Percent Auto 0.1 % (2-4); Hematocrit 43.4 % (41-53); Hemoglobin 14.4 g/dL (13.5-17.5); Lymphocytes Absolute Auto 1300 /uL (1100-4500); Lymphocytes Percent Auto 10.9 % (25-40); Mean Corpuscular HGB Conc 33.2 % (30-36); Mean Corpuscular Hemoglobin 27.8 PG (26-34); Mean Corpuscular Volume 83.7 fL (80-100); Monocytes Absolute Auto 500 /uL (0-900); Monocytes Percent Auto 4.4 % (3-14); Neutrophils Absolute Auto 9800 /uL (1500-7000); Neutrophils Percent Auto 84.2 % (50-75); Platelet Count 183 X10^3/uL (150-400); Red Blood Cell Count 5.19 X10^6/uL (4.5-5.9); Red Cell Distribution Width 15.1 % (11.6-14.8); White Blood Cell Count 11.6 X10^3/uL (4.5-11.0)
[2020-03-09 16:30] LABS: Alanine Aminotransferase 36 IU/L (<50); Albumin 4.7 g/dL (3.5-5.0); Albumin Globulin Ratio 1.2 (1.0-2.8); Alkaline Phosphatase 85 U/L (38-126); Aspartate Aminotransferase 29 IU/L (17-59); BUN Creatinine Ratio 24.2 (6-22); Bilirubin Total 0.5 mg/dL (0.2-1.3); Blood Urea Nitrogen 29 mg/dL (9-20); Calcium 9.5 mg/dL (8.4-10.2); Carbon Dioxide 26 mmol/L (22-32); Chloride 103 mmol/L (98-107); Estimated Glomerular Filt Rate > 60.0 mL/min (>60); Globulin 3.8 g/dL (1.7-4.1); Glucose 103 mg/dL (70-100); HEMOLYSIS < 15 (0-50); Potassium 4.4 mmol/L (3.4-5.1); Sodium 136 mmol/L (137-145); Total Protein 8.5 g/dL (6.3-8.2)
[2020-03-09 16:51] VITALS: BP 125/82; PULSE 78; O2SAT 99
== END 2020-03-09 17:23 | disposition home or self-care (01) ==
PROVIDERS: Emergency Provider Nurse Practitioner
DX: N13.30 Unspecified hydronephrosis (principal)
CPT/HCPCS: 36415; 76770; 80053; 81003; 85025; 99283; 99284

== ENCOUNTER → 2020-03-28 14:33 | Outpatient (CLI) | payer OTHER, SELFPAY ==
--- NOTE | 2020-03-28 14:34 | DI.US.S_ITS ---
PROCEDURE: US RENAL COMPLETE INDICATIONS: left sided hydronephrosis TECHNIQUE: Real-time scanning was performed of the kidneys and bladder, with image documentation. COMPARISON: [facility], , RENAL COMPLETE, 03/09/2020, 15:50. FINDINGS: Kidneys: Kidneys are normal in size. Right kidney measures 11.5 cm long; left kidney measures 11.6 cm long. Right renal cortical thickness is 2.0 cm; left renal cortical thickness is 1.9 cm. Renal cortical echotexture is normal. Moderate left hydronephrosis. No right hydronephrosis. No nephrolithiasis. No suspicious solid mass lesions. Bladder: Pre-void bladder volume is 513 mL. Post-void residual is 7 mL. Pre-void images demonstrate no intraluminal masses or stones. On pre-void images, neither of the ureteral jets are noted with color Doppler interrogation. (Of note, ureteral jets may not be detectable in up to 25% of cases due to insufficient differences in specific gravity between ureteral and bladder urine). Miscellaneous: No free pelvic fluid. IMPRESSION: Moderate left hydronephrosis. This appears grossly unchanged since 03/09/20 Dictated by: Antolin Neff M.D. on 03/28/2020 at 17:08 Approved by: Antolin Neff M.D. on 03/28/2020 at 17:10
== END ==
PROVIDERS: Referring Provider Internal Medicine Hematology & Oncology; Visit Provider Internal Medicine Hematology & Oncology
DX: C62.91 Malignant neoplasm of right testis, unspecified whether descended or undescended (principal); N13.30 Unspecified hydronephrosis
CPT/HCPCS: 76770

== ENCOUNTER → 2020-04-28 11:53 | Outpatient (CLI) | payer OTHER, SELFPAY ==
--- NOTE | 2020-04-28 11:54 | DI.CT.S_ITS ---
PROCEDURE: CT ABDOMEN PELVIS W CON INDICATIONS: elevated LDH, evaluate chemo vs progression TECHNIQUE: After the administration of oral and intravenous contrast, 5 mm thick sections acquired from the diaphragms to the symphysis. 5 mm thick coronal and sagittal reformats were performed. For radiation dose reduction, the following was used: automated exposure control, adjustment of mA and/or kV according to patient size. COMPARISON: [facility], NM, NM PET CT FUSION SKULL 2 THIGH, 03/15/2020, 15:37. [facility], CT, CT ABDOMEN PELVIS W CON, 02/29/2020, 10:54. FINDINGS: Image quality: Excellent. ABDOMEN: Lung bases: Lung bases are clear. Heart size is normal. Solid organs: Liver is normal in size and enhancement. Gallbladder is largely collapsed . Biliary system is non-dilated. Pancreas enhances normally. Spleen is normal in size and enhancement. No adrenal nodules. Kidneys are normal in size and enhancement, without hydronephrosis. Peritoneum and bowel: Stomach, small bowel, and colon loops are normal in caliber and wall thickness. No free fluid or air. Nodes and vessels: No new areas of retroperitoneal or mesenteric adenopathy are found, and there has been a significant interval reduction in size of the left periaortic enlarged nodes which had produce significant impingement on the outflow from the left urinary tract, with subsequent resolution now of the hydronephrosis previously present. There is a small residual amount of soft tissue prominence at the left periaortic retroperitoneum and also at the aortocaval space, without discrete lobulated masses, potentially representing scarring residual from successful treatment of prior more bulky adenopathy.. Aorta and inferior vena cava are normal in caliber. Miscellaneous: No ventral hernias. PELVIS: Genitourinary: Bladder wall thickness is normal. Miscellaneous: No inguinal hernias or adenopathy. Bones: No suspicious bony lesions. No vertebral body compression fractures. IMPRESSION: The retroperitoneal adenopathy at and just below the kidney level has almost completely resolved, with a small degree of residual soft tissue prominence remaining, potentially soft tissue scarring related to successful treatment of lymphoma. No discrete adenopathy remains. Resolution of left-sided hydronephrosis previously documented. Dictated by: Glen Rose M.D. on 04/28/2020 at 13:47 Approved by: Glen Rose M.D. on 04/28/2020 at 13:54
== END ==
PROVIDERS: Referring Provider Internal Medicine Hematology & Oncology; Visit Provider Internal Medicine Hematology & Oncology
DX: C62.91 Malignant neoplasm of right testis, unspecified whether descended or undescended (principal); R74.02 Elevation of levels of lactic acid dehydrogenase [LDH]
CPT/HCPCS: 74177; Q9967

== ENCOUNTER → 2020-05-04 14:19 | Outpatient (CLI) | payer OTHER, SELFPAY ==
--- NOTE | 2020-05-04 14:21 | DI.MRI.S_ITS ---
PROCEDURE: MR HEAD/BRAIN WO/W CON INDICATIONS: double vision; evaluate poss brain mets TECHNIQUE: Noncontrast axial T1 spin echo, axial T2 fast spin echo, sagittal and axial FLAIR, coronal T2 fast spin echo, axial gradient echo, axial diffusion and ADC through the brain. After the administration of contrast, axial and coronal 3D VIBE or T1 spin echo with fat saturation through the brain. COMPARISON: None. FINDINGS: Image quality: Excellent. CSF Spaces: Basal cisterns are patent. No extra-axial fluid collections. Ventricles are normal in size and shape. Brain: No midline shift. No intracranial bleeds or masses. Linear enhancement within the left parietal periventricular and subcortical white matter. Otherwise normal intracranial enhancement. The brainstem appears normal. Diffusion-weighted images demonstrate no acute ischemic insults. No chronic ischemic insults. Normal intravascular flow voids are present. Skull and face: Calvarial marrow is normal in signal. Orbits appear normal. Sinuses: Sinuses and mastoids appear clear. IMPRESSION: 1. No explanation for diplopia. 2. No evidence of metastatic disease. 3. No acute process. No recent infarct. 4. Small developmental venous anomaly within the left parietal lobe. Dictated by: Nate Hoskins M.D. on 05/04/2020 at 15:19 Approved by: Nate Hoskins M.D. on 05/04/2020 at 15:21
== END ==
PROVIDERS: Referring Provider Internal Medicine Hematology & Oncology; Visit Provider Internal Medicine Hematology & Oncology
DX: C62.91 Malignant neoplasm of right testis, unspecified whether descended or undescended (principal); H53.2 Diplopia
CPT/HCPCS: 70553; A9579

== ENCOUNTER → 2020-05-22 14:41 | Outpatient (CLI) | payer OTHER, SELFPAY ==
--- NOTE | 2020-05-22 | DI.MRI.S_ITS ---
PROCEDURE: MR ANKLE RT WO/W CON INDICATIONS: Localized swelling, mass and lump, right lower sawant TECHNIQUE: Noncontrast sagittal T1 spin echo and T2 fast spin echo with fat saturation, axial proton density fast spin echo and T2 fast spin echo with fat saturation, axial T1 spin echo with fat saturation, coronal T1 spin echo and T2 fast spin echo with fat saturation through the ankle/hindfoot. Post-contrast axial, coronal, and sagittal T1 spin echo with fat saturation through the ankle/hindfoot. COMPARISON: None. FINDINGS: Image quality: Excellent. Bones and joints: No suspicious osseous enhancement or intraosseous mass. No bone marrow contusions or fractures. No hindfoot coalitions. No osteochondral injuries of the talar dome. There is a small tibiotalar joint effusion. Mild nonspecific subcutaneous edema is demonstrated medially and laterally at the ankle without associated suspicious enhancement. No discrete soft tissue mass. Medial structures: The posterior tibialis, flexor digitorum longus, and flexor hallucis longus tendons are intact. A small amount of tenosynovial fluid is demonstrated along the posterior tibialis with associated mild tenosynovial enhancement. The posterior tibial neurovascular bundle appears normal within the tarsal tunnel, without extrinsic mass effect. The deltoid and spring ligament components appear intact. Lateral structures: The anterior talofibular ligament is markedly attenuated in appearance with edema along its expected course consistent with sequelae of a severe sprain. The calcaneofibular ligament demonstrates mildly attenuated signal compatible with a mild sprain. The posterior talofibular ligament appears intact. The anterior talofibular, calcaneofibular, and posterior talofibular ligaments appear intact. More superiorly, the anterior and posterior tibiofibular ligaments appear intact, as is the intermalleolar ligament. The tibiofibular syndesmosis is normal in width at 2 mm or less. The peroneus longus and brevis tendons demonstrate normal location and morphology with a small amount of tenosynovial fluid along the peroneal tendons along the lateral malleolus. Adjacent bony peroneal tubercle and retrotrochlear prominence are normal in size. The sinus tarsi demonstrates normal fatty signal, without edema, fibrosis, or cyst formation. The calcaneonavicular and calcaneocuboid components of the bifurcate ligament appear intact. The dorsal calcaneocuboid ligament appears intact. Anterior structures: The tibialis anterior, extensor hallucis longus, and extensor digitorum longus tendons appear intact. The dorsal talonavicular ligament appears intact. Posterior and plantar structures: Achilles tendon is intact. There is a small cyst along the anterior aspect of the distal Achilles tendon measuring up to approximately 0.9 x 0.3 x 0.2 cm. Minimal fluid is demonstrated within the retrocalcaneal bursa. Medial and lateral bands of the plantar fascia are of normal thickness. No abductor digiti quinti muscle atrophy to suggest [place] neuropathy. IMPRESSION: 1. Small nonspecific tibiotalar joint effusion. 2. Mild tenosynovitis along the posterior tibialis and peroneal tendons. 3. Sequelae of a severe sprain of the anterior talofibular ligament. 4. Small cyst along the distal Achilles tendon of indeterminate etiology may reflect sequelae of a prior mild strain. Trace fluid is demonstrated in the retrocalcaneal bursa. 5. No suspicious intraosseous or soft tissue mass. Dictated by: Kaiser Barrera M.D. on 05/22/2020 at 16:04 Approved by: Kaiser Barrera M.D. on 05/22/2020 at 16:22
== END ==
PROVIDERS: Visit Provider Internal Medicine Hematology & Oncology
DX: R22.41 Localized swelling, mass and lump, right lower limb (principal); M65.871 Other synovitis and tenosynovitis, right ankle and foot; M67.873 Other specified disorders of tendon, right ankle and foot; S93.491S Sprain of other ligament of right ankle, sequela; X58.XXXS Exposure to other specified factors, sequela
CPT/HCPCS: 73723

== ENCOUNTER → 2020-06-22 10:14 | Outpatient (CLI) | payer OTHER, SELFPAY ==
--- NOTE | 2020-06-22 10:15 | DI.CT.S_ITS ---
PROCEDURE: CT CHEST ABD PEL W CON INDICATIONS: testicular cancer TECHNIQUE: After the administration of oral and intravenous contrast, 5 mm thick sections acquired from the lung apices to the symphysis. 5 mm coronal and sagittal reformats were performed, with additional 7 mm coronal MIP reformats through the lungs. For radiation dose reduction, the following was used: automated exposure control, adjustment of mA and/or kV according to patient size. COMPARISON: [facility], CT, CT PEL WO CON, 09/14/2019, 22:12. [facility], CT, CT ANGIO CHEST PE PROTOCOL, 07/25/2019, 9:46. [facility], CT, CT CHEST ABD PEL WO CON, 09/17/2019, 13:17. [facility], CT, CT ABDOMEN PELVIS W CON, 04/28/2020, 13:03. FINDINGS: Image quality: Excellent. CHEST: Lungs and pleura: No acute airspace opacities. No pleural effusions or pneumothorax. Central and peripheral airways appear patent and normal in caliber. Mediastinum: Heart size is normal. No pericardial effusion. No mediastinal or hilar adenopathy by size criteria. Thoracic aorta and central pulmonary arteries are normal in size. Esophagus is normal in caliber. No hiatal hernia. Chest wall: No axillary or supraclavicular adenopathy by size criteria. Thyroid gland appears normal where well seen. ABDOMEN: Solid organs: Liver is normal in size and enhancement. Gallbladder appears normal . Biliary system is non dilated. Pancreas enhances normally. Spleen is normal in size and enhancement. No adrenal nodules. Kidneys demonstrate normal size and enhancement, without hydronephrosis. Peritoneum and bowel: Bowel loops demonstrate normal wall thickness and caliber. No free fluid or air. Nodes and vessels: No retroperitoneal or mesenteric adenopathy by size criteria, however previously markedly enlarged lymph nodes had been present in the retroperitoneum, in this patient with prior history of testicular carcinoma best seen on CT scanning from 09/14/19 and 09/17/19. There is mild persistent soft tissue prominence in the area of prior extensive adenopathy, consistent with successful response to therapy and likelihood of post treatment scarring.. Aorta and inferior vena cava are normal in size. Miscellaneous: No ventral hernias. PELVIS: Genitourinary: Bladder wall thickness is normal. Miscellaneous: No inguinal hernias or adenopathy. Bones: No suspicious bony lesions. No vertebral body compression fractures. 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 No new lesion is identified. Stable post-treatment scarring. Dictated by: Glen Rose M.D. on 06/22/2020 at 13:11 Approved by: Glen Rose M.D. on 06/22/2020 at 13:17
== END ==
PROVIDERS: Referring Provider Internal Medicine Hematology & Oncology; Visit Provider Internal Medicine Hematology & Oncology
DX: C62.91 Malignant neoplasm of right testis, unspecified whether descended or undescended (principal)
CPT/HCPCS: 71260; 74177; Q9967

== ENCOUNTER → 2020-09-20 10:37 | Outpatient (CLI) | payer OTHER, SELFPAY ==
--- NOTE | 2020-09-20 11:44 | DI.CT.S_ITS ---
Seminoma. not yet finalized and possibly incomplete! PROCEDURE: CT CHEST ABD PEL W CON INDICATIONS: seminoma TECHNIQUE: After the administration of oral and intravenous contrast, 5 mm thick sections acquired from the lung apices to the symphysis. 5 mm coronal and sagittal reformats were performed, with additional 7 mm coronal MIP reformats through the lungs. For radiation dose reduction, the following was used: automated exposure control, adjustment of mA and/or kV according to patient size. COMPARISON: [facility], CT, CT ABDOMEN PELVIS W CON, 04/28/2020, 13:03. [facility], CT, CT CHEST ABD PEL W CON, 06/22/2020, 11:09. FINDINGS: Image quality: Excellent. CHEST: Lungs and pleura: No acute airspace opacities. No pleural effusions or pneumothorax. Central and peripheral airways appear patent and normal in caliber. Mediastinum: Heart size is normal. No pericardial effusion. No mediastinal or hilar adenopathy by size criteria. Thoracic aorta and central pulmonary arteries are normal in size. Esophagus is normal in caliber. No hiatal hernia. Chest wall: No axillary or supraclavicular adenopathy by size criteria. Thyroid gland is not well seen ABDOMEN: Solid organs: Liver is normal in size and enhancement. Gallbladder is contracted. Biliary system is non dilated. Pancreas enhances normally. Spleen is normal in size and enhancement. No adrenal nodules. Kidneys demonstrate normal size and enhancement, without hydronephrosis. Peritoneum and bowel: Bowel loops demonstrate normal wall thickness and caliber. No free fluid or air. Nodes and vessels: No retroperitoneal or mesenteric adenopathy by size criteria. Aorta and inferior vena cava are normal in size. Residual stranding within the periaortic retroperitoneum has not worsened, and no discrete enlarged nodes remain. Miscellaneous: No ventral hernias. PELVIS: Genitourinary: Bladder wall thickness is normal. Miscellaneous: No inguinal hernias or adenopathy. Bones: No suspicious bony lesions. No vertebral body compression fractures. IMPRESSION: Resolution of adenopathy along the peroneal retroperitoneum in this patient with prior history of seminoma. No pulmonary nodule has developed. No visceral involvement by tumor is seen. A continued survey imaging is anticipated. Dictated by: Glen Rose M.D. on 09/20/2020 at 15:02 Approved by: Glen Rose M.D. on 09/20/2020 at 15:06
== END ==
PROVIDERS: Referring Provider Internal Medicine Hematology & Oncology; Visit Provider Internal Medicine Hematology & Oncology
DX: C62.91 Malignant neoplasm of right testis, unspecified whether descended or undescended (principal)
CPT/HCPCS: 71260; 74177; Q9967

== ENCOUNTER → 2020-12-08 09:30 | Outpatient (CLI) | payer OTHER, SELFPAY ==
[2020-12-08 11:36] LABS: COVID19 -Nasal RAPID Negative (Negative)
== END ==
PROVIDERS: Visit Provider Surgery
DX: Z20.822 Contact with and (suspected) exposure to COVID-19 (principal)
CPT/HCPCS: 87635; C9803

== ENCOUNTER 2020-12-11 06:24 | Day surgery (SDC) | payer OTHER, SELFPAY ==
[2020-12-08 09:34] VITALS: BMI 38.9
[2020-12-11 07:15] VITALS: BMI 38.0
--- NOTE | 2020-12-11 07:24 | PM.PREOP ---
Pre-operative Note COVID-19 COVID-19 status: Negative Result date/Date tested (Pos, Neg/Pending): 12/08/20 Interval Note History & Physical reviewed/Exam performed by Physician: Yes Changes to H&P: No
[2020-12-11] MEDS: LACTATED RINGERS 1,000 ML 100 ML IV (07:36)
[2020-12-11 07:37] VITALS: BP 114/72; PULSE 60; RESP 16; TEMP 36.1; O2SAT 98
[2020-12-11] MEDS: CEFAZOLIN VIAL 3 GM in SODIUM CHLORIDE 0.9% 100 ML 200 ML IV (07:55)
--- NOTE | 2020-12-11 08:00 | SUR.OPER ---
Supine on padded OR bed, head on pillow, arms secured on padded arm boards at <90 degrees abduction, legs uncrossed, safety belt at thigh, tape over blanket over lower legs.
[2020-12-11] MEDS: BUPIVACAINE 0.5% W/ EPI (PF) 30 ML VIAL INJ (08:09)
--- NOTE | 2020-12-11 08:19 | PM.OP.1 ---
Operative Date/Time/Diagnoses Date of procedure: 12/11/20 Time of procedure: 08:19 Post-op diagnosis: same Procedure & Clinicians Procedure: Portacath removal Same procedure as scheduled: Yes Indications: Patient had Port-A-Cath placed last year for chemotherapy, and it is no longer needed at this point. It is being removed because it is no longer needed, and it bears a risk of infection, propagating clot, and dislodgement if left in place. Surgeon: Maeve Geller Anesthesia Type: General Operative Notes Findings: Port-A-Cath intact, and undamaged Specimen(s): other (Port-A-Cath for gross) Estimated Blood Loss (mL): 2 Procedure in detail: Patient was placed supine on the operating room table and underwent general LMA anesthesia. The right neck and chest were prepped and draped in the usual fashion. SCDs were placed on both legs and turned on. Surgical time-out was conducted, appropriate antibiotics were given, and local anesthetic was infiltrated beneath the skin overlying the port in the right chest. A 3 cm transverse incision was then made in anesthetized area on the right chest wall in the position of the prior skin incision. Dissection was carried down through the subcutaneous tissue until the Port-A-Cath was reached, it was then dissected out from the surrounding fat and fascia, and the sutures securing the port were cut. I dissected all the way around the port and up to where it connects to the catheter, and once the catheter was freed it was grasped and pulled out of the IJ gently and without any difficulty. There was no back bleeding. The entire port was then dissected away from any remaining bands, and was removed and passed off the field. The remaining capsule was then excised, and local anesthetic was infiltrated into the wound. There was good hemostasis. The skin was closed with interrupted 3-0 Vicryl, and running 4-0 Monocryl, and sealed with Dermabond. This concluded the procedure and the patient was awakened from anesthesia and transferred to the postanesthesia care unit in stable condition. Needle sponge and instrument counts were correct x2 at the end of the case. The patient tolerated the procedure well and was transferred to the PACU in stable condition. Complications: none Post-operative Condition: stable Disposition: PACU
[2020-12-11 08:23] VITALS: BP 128/69; PULSE 82; RESP 14; TEMP 36.1; O2SAT 92
[2020-12-11 08:28] VITALS: BP 131/76; PULSE 84; RESP 13; O2SAT 95
[2020-12-11 08:33] VITALS: BP 125/71; PULSE 81; RESP 14; O2SAT 94
[2020-12-11] MEDS: ACETAMINOPHEN 325 MG TABLET 975 MG PO (08:34)
[2020-12-11 08:38] VITALS: BP 127/77; PULSE 76; RESP 13; O2SAT 95
== END 2020-12-11 09:08 | disposition home or self-care (01) ==
PROVIDERS: Visit Provider Surgery
PROC: (CPT 36590; principal; 2020-12-11 07:45)
DX: Z45.2 Encounter for adjustment and management of vascular access device (principal); Z85.47 Personal history of malignant neoplasm of testis; Z86.711 Personal history of pulmonary embolism; Z79.01 Long term (current) use of anticoagulants
CPT/HCPCS: 36590; 82962; J0690; J1100; J2250; J2405; J2704; J3010

== ENCOUNTER → 2020-12-21 10:14 | Outpatient (CLI) | payer OTHER, SELFPAY ==
--- NOTE | 2020-12-21 10:16 | DI.CT.S_ITS ---
PROCEDURE: CT CHEST ABD PEL W CON INDICATIONS: seminoma, follow up TECHNIQUE: After the administration of oral and intravenous contrast, 5 mm thick sections acquired from the lung apices to the symphysis. 5 mm coronal and sagittal reformats were performed, with additional 7 mm coronal MIP reformats through the lungs. For radiation dose reduction, the following was used: automated exposure control, adjustment of mA and/or kV according to patient size. COMPARISON: [facility], CT, CT CHEST ABD PEL W CON, 09/20/2020, 11:37. [facility], CT, CT CHEST ABD PEL W CON, 06/22/2020, 11:09. [facility], CT, CT ABDOMEN PELVIS W CON, 04/28/2020, 13:03. FINDINGS: Image quality: Excellent. CHEST: Lungs and pleura: No acute airspace opacities. No lung nodules or masses. No pleural effusions or pneumothorax. Central and peripheral airways appear patent and normal in caliber. Mediastinum: Heart size is normal. No pericardial effusion. No mediastinal or hilar adenopathy by size criteria. Thoracic aorta and central pulmonary arteries are normal in size. Esophagus is normal in caliber. No hiatal hernia. Chest wall: Right chest wall Port-A-Cath has been removed in the interval since prior exam obtained September 20, 2020. No axillary or supraclavicular adenopathy by size criteria. Thyroid gland is normal. ABDOMEN: Solid organs: Liver is normal in size and enhancement. Gallbladder is within normal limits. Biliary system is non dilated. Pancreas enhances normally. Spleen is normal in size and enhancement. No adrenal nodules. Kidneys demonstrate normal size and enhancement, without hydronephrosis. Peritoneum and bowel: Bowel loops demonstrate normal wall thickness and caliber. No free fluid or air. Nodes and vessels: No retroperitoneal or mesenteric adenopathy by size criteria. Periaortic retroperitoneal stranding is stable compared to September 20, 2020. Aorta and inferior vena cava are normal in size. Miscellaneous: Small fat containing umbilical hernia. PELVIS: Genitourinary: Bladder wall thickness is normal. Miscellaneous: No inguinal adenopathy. Small fat containing left inguinal hernia. Bones: No suspicious bony lesions. No vertebral body compression fractures. IMPRESSION: 1. Stable examination compared to September 20, 2020. 2. No evidence of recurrent or residual seminoma. 3. No lymphadenopathy based on size criteria. Dictated by: Heide Durham MD, PhD on 12/21/2020 at 17:48 Approved by: Heide Durham MD, PhD on 12/21/2020 at 18:13
[2020-12-21 10:44] LABS: Add Manual Diff / Slide Review NO; Basophils Absolute Auto 0 /uL (0-100); Basophils Percent Auto 0.6 % (0-2); Eosinophils Absolute Auto 0 /uL (0-450); Eosinophils Percent Auto 0.5 % (2-4); Hematocrit 42.6 % (41-53); Hemoglobin 14.4 g/dL (13.5-17.5); Lymphocytes Absolute Auto 1300 /uL (1100-4500); Lymphocytes Percent Auto 25.4 % (25-40); Mean Corpuscular HGB Conc 33.9 % (30-36); Mean Corpuscular Hemoglobin 30.1 PG (26-34); Mean Corpuscular Volume 88.9 fL (80-100); Monocytes Absolute Auto 600 /uL (0-900); Monocytes Percent Auto 10.8 % (3-14); Neutrophils Absolute Auto 3200 /uL (1500-7000); Neutrophils Percent Auto 62.7 % (50-75); Platelet Count 148 X10^3/uL (150-400); Red Blood Cell Count 4.79 X10^6/uL (4.5-5.9); Red Cell Distribution Width 14.8 % (11.6-14.8); White Blood Cell Count 5.1 X10^3/uL (4.5-11.0)
[2020-12-21 10:59] LABS: Alanine Aminotransferase 63 IU/L (<50); Albumin 4.5 g/dL (3.5-5.0); Albumin Globulin Ratio 1.4 (1.0-2.8); Alkaline Phosphatase 108 U/L (38-126); Aspartate Aminotransferase 40 IU/L (17-59); Bilirubin Total 0.7 mg/dL (0.2-1.3); Blood Urea Nitrogen 21 mg/dL (9-20); Calcium 9.7 mg/dL (8.4-10.2); Carbon Dioxide 27 mmol/L (22-32); Chloride 104 mmol/L (98-107); Estimated Glomerular Filt Rate > 60.0 mL/min (>60); Globulin 3.2 g/dL (1.7-4.1); Glucose 102 mg/dL (70-100); HEMOLYSIS < 15 (0-50); Lactate Dehydrogenase 443 U/L (313-618); Potassium 4.4 mmol/L (3.4-5.1); Sodium 138 mmol/L (137-145); Total Protein 7.7 g/dL (6.3-8.2)
[2020-12-21 11:15] LABS: HCG Quantitative /Beta subunit < 2.4 mIU/mL (-2.40)
== END ==
PROVIDERS: Referring Provider Internal Medicine Hematology & Oncology; Visit Provider Internal Medicine Hematology & Oncology
DX: C62.91 Malignant neoplasm of right testis, unspecified whether descended or undescended (principal)
CPT/HCPCS: 36415; 71260; 74177; 80053; 82105; 83615; 84702; 85025

== ENCOUNTER 2021-03-14 10:39 | Emergency (ER) | payer OTHER, SELFPAY ==
[2021-03-14 10:51] VITALS: BP 135/79; PULSE 62; RESP 14; TEMP 36.6; O2SAT 97; BMI 38.4
[2021-03-14 11:44] LABS: Add Manual Diff / Slide Review NO; Basophils Absolute Auto 100 /uL (0-100); Basophils Percent Auto 0.9 % (0-2); Eosinophils Absolute Auto 0 /uL (0-450); Eosinophils Percent Auto 0.5 % (2-4); Hematocrit 42.6 % (41-53); Hemoglobin 14.4 g/dL (13.5-17.5); Lymphocytes Absolute Auto 1400 /uL (1100-4500); Lymphocytes Percent Auto 22.8 % (25-40); Mean Corpuscular HGB Conc 33.8 % (30-36); Mean Corpuscular Hemoglobin 29.7 PG (26-34); Mean Corpuscular Volume 87.9 fL (80-100); Monocytes Absolute Auto 600 /uL (0-900); Monocytes Percent Auto 10.3 % (3-14); Neutrophils Absolute Auto 4100 /uL (1500-7000); Neutrophils Percent Auto 65.5 % (50-75); Platelet Count 159 X10^3/uL (150-400); Red Blood Cell Count 4.85 X10^6/uL (4.5-5.9); Red Cell Distribution Width 14.4 % (11.6-14.8); White Blood Cell Count 6.3 X10^3/uL (4.5-11.0)
[2021-03-14 11:48] LABS: D Dimer < 200 ng/mL (<230)
[2021-03-14 11:49] LABS: Alanine Aminotransferase 45 IU/L (<50); Albumin 4.5 g/dL (3.5-5.0); Albumin Globulin Ratio 1.5 (1.0-2.8); Alkaline Phosphatase 113 U/L (38-126); Aspartate Aminotransferase 29 IU/L (17-59); BUN Creatinine Ratio 23.6 (6-22); Bilirubin Total 0.5 mg/dL (0.2-1.3); Blood Urea Nitrogen 29 mg/dL (9-20); Calcium 9.6 mg/dL (8.4-10.2); Carbon Dioxide 26 mmol/L (22-32); Chloride 109 mmol/L (98-107); Estimated Glomerular Filt Rate > 60.0 mL/min (>60); Globulin 3.1 g/dL (1.7-4.1); Glucose 98 mg/dL (70-100); HEMOLYSIS < 15 (0-50); Potassium 4.3 mmol/L (3.4-5.1); Sodium 140 mmol/L (137-145); Total Protein 7.6 g/dL (6.3-8.2)
[2021-03-14 13:04] VITALS: BP 113/75; PULSE 64; RESP 18; O2SAT 95
--- NOTE | 2021-03-15 10:47 | ED_ITS ---
HPI - Extremity Problem General Chief complaint: Extremity Problem,Nontraumatic Stated complaint: HX OF CA/PULMINARY EMBOLISM, WANTS A CT SCAN Time Seen by Provider: 03/14/21 12:36 Source: patient Mode of arrival: Ambulatory Limitations: no limitations History of Present Illness HPI Narrative: 40-year-old gentleman, active duty [employer] with history of pulmonary embolism. Currently on Eliquis. Over the last couple of days he had noticed some increased lower extremity edema with [place] DVT or pulmonary embolism is sent for further evaluation. He reports no dyspnea, exertional dyspnea, palpitations, tachycardia, chest pain, orthopnea, abdominal pain, vomiting, diarrhea. Related Data Home Medications Medication Instructions Recorded Confirmed acetaminophen 325 mg tablet 650 mg PO Q4H PRN 09/02/19 12/28/20 (Tylenol) cyclobenzaprine 5 mg tablet 5 mg PO TID PRN 09/02/19 12/28/20 Previous Rx's Medication Instructions Recorded apixaban 5 mg tablet (Eliquis) 5 mg PO BID 90 Days #180 tab 12/28/20 Allergies Allergy/AdvReac Type Severity Reaction Status Date / Time No Known Drug Allergies Allergy Verified 03/14/21 10:53 Review of Systems Review of Systems Narrative: Remainder of complete review of systems is otherwise unremarkable except for that included in the HPI. Patient History Medical History Chest pain Decreased exercise tolerance DVT (deep venous thrombosis) Easy bruisability FHx: migraine headaches Headache Hydronephrosis, left Hydronephrosis, left Hypoxia (07/25/19) Inguinal hernia Lipoma Lymphoma Multiple pulmonary emboli (07/25/19) Patient denies medical problems Renal disease Retroperitoneal lymphadenopathy Right testicular cancer (07/2019) Seminoma of right testis, stage 3 Testicular cancer Weight loss, non-intentional (~07/2019) Surgical History H/O vasectomy (07/29/19) History of orchiectomy History of removal of skin mole History of surgery (09/14/19) History of ureter stent (07/29/19) History of ureter stent (08/24/19) Hx of cystoscopy (07/29/19) S/P radical unilateral orchiectomy (07/29/19) Family History Mother Rheumatoid arthritis Father Diabetes mellitus Hypertension Grandmother Diabetes mellitus Grandfather Cancer Social History marital status: household members: spouse and children occupational status: employed Smoking Status: Former smoker alcohol intake: current substance use type: does not use Smoking Status: Former smoker alcohol intake frequency: a few times a week Alcohol type: beer Substance Use Type: does not use Exam Narrative Exam Narrative: General: Alert appropriate in no acute distress Respiratory: Able to speak in full sentences, no obvious respiratory distress Skin: No petechiae over chest abdomen torso or face, warm and dry Neurologic: Grossly intact no obvious asymmetries or abnormalities Psych: appropriate insight and affect, cooperative Lower extremities: No significant lower extremity edema is appreciated today and specifically no unilateral edema. He does have mild petechiae over the calves. Initial Vital Signs Initial Vital Signs: Vital Signs Temperature 97.9 F 03/14/21 10:51 Pulse Rate 62 03/14/21 10:51 Respiratory Rate 14 03/14/21 10:51 Blood Pressure 135/79 03/14/21 10:51 Pulse Oximetry 97 03/14/21 10:51 MDM - Extremity (Nontraumatic) Lab Data Result diagrams: 03/14/21 11:30 03/14/21 11:30 Labs: Lab Results 03/14/21 03/14/21 03/14/21 Range/Units 11:30 11:30 11:30 WBC 6.3 (4.5-11.0) X10^3/uL RBC 4.85 (4.5-5.9) X10^6/uL Hgb 14.4 (13.5-17.5) g/dL Hct 42.6 (41-53) % MCV 87.9 (80-100) fL MCH 29.7 (26-34) PG MCHC 33.8 (30-36) % RDW 14.4 (11.6-14.8) % Plt Count 159 (150-400) X10^3/uL Neut % (Auto) 65.5 (50-75) % Lymph % (Auto) 22.8 L (25-40) % Haines % (Auto) 10.3 (3-14) % Eos % (Auto) 0.5 L (2-4) % Baso % (Auto) 0.9 (0-2) % Neut # (Auto) 4100 (0506-2879) /uL Lymph # (Auto) 1400 (2689-6320) /uL Haines # (Auto) 600 (0-900) /uL Eos # (Auto) 0 (0-450) /uL Baso # (Auto) 100 (0-100) /uL D-Dimer < 200 (<230) ng/mL Sodium 140 (137-145) mmol/L Potassium 4.3 (3.4-5.1) mmol/L Chloride 109 H (98-107) mmol/L Carbon Dioxide 26 (22-32) mmol/L BUN 29 H (9-20) mg/dL Creatinine 1.23 (0.66-1.25) mg/dL Estimated GFR > 60.0 (>60) mL/min BUN/Creatinine Ratio 23.6 H (6-22) Glucose 98 (70-100) mg/dL Calcium 9.6 (8.4-10.2) mg/dL Total Bilirubin 0.5 (0.2-1.3) mg/dL AST 29 (17-59) IU/L ALT 45 (<50) IU/L Alkaline Phosphatase 113 (38-126) U/L Total Protein 7.6 (6.3-8.2) g/dL Albumin 4.5 (3.5-5.0) g/dL Globulin 3.1 (1.7-4.1) g/dL Albumin/Globulin Ratio 1.5 (1.0-2.8) [facility] Narrative Medical decision making narrative: 40-year-old gentleman on Eliquis for pulmonary embolism presents for further evaluation. On clinical exam he does not have suggestion of unilateral edema. He does not have signs or symptoms of pulmonary embolism. Labs reveal a normal D-dimer so additional imaging is not required at this time. Regarding the petechiae he has got no infectious disease etiology. CBC is unremarkable including platelet count. He is working currently with an oncologist and recommended that he follow-up with the oncologist to see if additional workup is needed regarding the petechiae. He does note that last week both legs had been somewhat more swollen and I suspect that this was related to heat and fluid retention more than anything else and that may have been the reason for petechiae in the setting of Eliquis. He has no other evidence of bleeding. Reassurance is given he is given copies of all of his blood work to take back to his [facility] provider and he is safe for home discharge. Discharge Plan Departure Patient Disposition: Home Clinical Impression: Petechiae Activity Restrictions/Additional Instructions: Thank you for coming in today Your blood work is very reassuring. With a normal D-dimer you do not have any blood clots (pulmonary embolism or DVT) at this time. The remainder of your blood work did not suggest any acute findings to explain that petechiae. Your platelet count was normal as was your red blood cell count There is no sign of kidney failure, liver failure or other electrolyte abnormalities to explain the swelling that you have experienced. Please follow-up with your primary care physician as well as your oncologist regarding the petechiae If you have worsening symptoms please feel free to return to the ER Prescriptions: No Action acetaminophen [Tylenol] 325 mg Tablet 650 mg PO Q4H PRN (Reason: Pain (Scale Score 4-6)) RF: 0 cyclobenzaprine 5 mg Tablet 5 mg PO TID PRN (Reason: Pain (Scale Score 4-6)) RF: 0 Eliquis 5 mg Tablet 5 mg PO BID 90 Days Qty: 180 RF: 0 Referrals: Zain Murillo [Primary Care Provider] -
== END 2021-03-14 13:05 | disposition home or self-care (01) ==
PROVIDERS: Emergency Provider Emergency Medicine
DX: R23.3 Spontaneous ecchymoses (principal); Z86.11 Personal history of tuberculosis; Z79.01 Long term (current) use of anticoagulants
CPT/HCPCS: 80053; 85025; 85379; 99281; 99283

== ENCOUNTER → 2021-04-06 12:48 | Outpatient (CLI) | payer OTHER, SELFPAY ==
--- NOTE | 2021-04-06 12:49 | DI.CT.S_ITS ---
PROCEDURE: CT CHEST ABD PEL W CON INDICATIONS: STAGE III seminoma TECHNIQUE: After the administration of oral and intravenous contrast, axial sections acquired from the supraclavicular neck to the pubic symphysis. Coronal and sagittal reformats were performed. For radiation dose reduction, the following was used: automated exposure control, adjustment of mA and/or kV according to patient size. COMPARISON:[facility], CT, CT CHEST ABD PEL W CON, 12/21/2020, 11:35. FINDINGS: Image quality: Excellent. CHEST: Lower Neck: No enlarged lymph nodes. Thyroid: Within normal limits Axillae: No enlarged lymph nodes. Chest Wall: Unremarkable. Lungs and Airways: No consolidation or suspicious nodules. Scattered atelectasis in posterior and lateral periphery of bilateral lower lung cespedes are seen. Central and peripheral airway is patent. Pleura: No pneumothorax or pleural effusions. Heart: Heart size is normal. No pericardial effusion. Thoracic Vessels: The aorta and pulmonary arteries demonstrate normal size. Mediastinum and Jenn: No enlarged lymph nodes. Esophagus: No wall thickening. No hiatal hernia. ABDOMEN: Liver: Unremarkable. Gallbladder: Within normal limits. Biliary ducts: Unremarkable. Pancreas: Unremarkable. Spleen: Unremarkable. Adrenal Glands: Unremarkable. Kidneys and Ureters: Unremarkable. Stomach and Bowel: Stomach, small bowel loops, and colon are unremarkable. Peritoneum: No abnormal intraperitoneal fluid. No free air. Ventral Wall: No hernia. Abdominal Nodes: No retroperitoneal or mesenteric adenopathy by size criteria. Vessels: Aorta and inferior vena cava are normal in size. PELVIS: Pelvic Organs: Unremarkable. Bladder: Unremarkable. Pelvic Nodes: Borderline prominent bilateral inguinal lymph nodes are noted measures up to 1.1 cm in short axis diameter series 2, image 122. Miscellaneous: Small bilateral inguinal hernia are seen containing fat only. Bones: No suspicious bony lesion. No acute vertebral body compression fracture. IMPRESSION: 1. Nonspecific borderline enlarged bilateral inguinal lymph nodes measures up to 1.1 cm in size. No abnormally enlarged lymph nodes are seen in chest or abdomen. No retroperitoneal lymphadenopathy. 2. No evidence of pulmonary metastatic disease. 3. No significant changes from previous study. Dictated by: Miguel Angel Mclain M.D. on 04/06/2021 at 14:13 Approved by: Miguel Angel Mclain M.D. on 04/06/2021 at 15:09
== END ==
PROVIDERS: Referring Provider Internal Medicine Hematology & Oncology; Visit Provider Internal Medicine Hematology & Oncology
DX: C62.91 Malignant neoplasm of right testis, unspecified whether descended or undescended (principal); R59.0 Localized enlarged lymph nodes
CPT/HCPCS: 71260; 74177; Q9967